=== PATIENT | male | born 1965 | race Caucasian/White ===

== ENCOUNTER → 2022-10-02 | Outpatient (CLI) | payer OTHER ==
--- NOTE | 2022-10-02 12:04 | XR ---
EXAMINATION TYPE: XR Hip Complete LT DATE OF EXAM: 10/02/2022 COMPARISON: EXAMINATION TYPE: XR Hip Complete LT DATE OF EXAM: 10/02/2022 COMPARISON: NONE HISTORY: Pain. TECHNIQUE: 2 views submitted FINDINGS: There is no evidence of erosive change or acute fracture. mild concentric narrowing of the hip joint. There may be slight hypertrophic change of the acetabulum . IMPRESSION: 1. Mild arthropathy correlate for femoral acetabular impingement.
[2022-10-02 18:09] LABS: Basophils # (A) 0.06 X 10*3/uL (0.00-0.10); Basophils % (A) 0.4 %; Eosinophils # (A) 0.06 X 10*3/uL (0.04-0.35); Eosinophils % (A) 0.4 %; HCT 47.8 % (39.6-50.0); HGB 16.4 g/dL (13.0-17.0); Immature Grans, Automated 0.5 %; Lymphocytes # (A) 1.69 X 10*3/uL (0.90-5.00); Lymphocytes % (A) 11.2 %; MCH 31.1 pg (27.0-32.0); MCHC 34.3 g/dL (32.0-37.0); MCV 90.5 fL (80.0-97.0); Mean Platelet Volume 9.5 fL (9.5-12.2); Monocytes # (A) 0.82 X 10*3/uL (0.20-1.00); Monocytes % (A) 5.4 %; NRBC Per 100 WBC 0 /100 WBCS (0.0-0.0); Neutrophils # (A) 12.38 X 10*3/uL (1.80-7.70); Neutrophils % (A) 82.1 %; Platelet Count 277 X 10*3/uL (140-440); RBC 5.28 X 10*6/uL (4.40-5.60); RDW 12.6 % (11.5-14.5); WBC 15.08 X 10*3/uL (4.50-10.00)
[2022-10-02 19:04] LABS: Hepatitis C IgG Antibody Reactive (Nonreactive)
[2022-10-02 19:07] LABS: ALT 22 U/L (10-49); AST 21 U/L (14-35); African American GFR (CKD) 77.6 (60.0-200.0); Albumin/Globulin Ratio 2.36 (1.60-3.17); Alkaline Phosphatase 85 U/L (41-126); BUN/Creat Ratio 21.09 Ratio (12.00-20.00); Blood Urea Nitrogen 25.1 mg/dL (9.0-27.0); Calcium 10.1 mg/dL (8.7-10.3); Carbon Dioxide 26.3 mmol/L (20.0-27.5); Chloride 99 mmol/L (96-109); Chol/HDL Ratio 4.64 Ratio; Globulin 2.1 g/dL (1.6-3.3); Glucose 103 mg/dL (70-110); LDL Cholesterol,Calculated 179.7 mg/dL (0.0-131.0); Non-African American GFR(CKD) 66.9 (60.0-200.0); Potassium 5.3 mmol/L (3.5-5.5); Sodium 137 mmol/L (135-145); Total Protein 7.1 g/dL (6.2-8.2)
[2022-10-02 19:41] LABS: Protein, Total 7.2 g/dL (6.2-8.2)
[2022-10-02 20:20] LABS: DNA Double-Stranded NEGATIVE (NEGATIVE); Scleroderma SC-70 Ab <0.2 AI
[2022-10-02 20:24] LABS: Cyclic Citrull Pep IgG Unit <0.5 U/mL; Cyclic Citrullinated Pep IgG NEGATIVE (NEGATIVE)
[2022-10-02 20:49] LABS: Erythrocyte Sedimentation Rate 12 mm/Hr (0-20)
[2022-10-03 20:31] LABS: Rheumatoid Factor, Qnt 12 IU/mL (0-15)
== END | disposition home or self-care (01) ==
LOC: RADXRMAIN 11:42
PROVIDERS: ATTEND Internal Medicine
DX: Z11.59 Encounter for screening for other viral diseases (principal); Z12.5 Encounter for screening for malignant neoplasm of prostate; M16.12 Unilateral primary osteoarthritis, left hip; I10 Essential (primary) hypertension; G57.93 Unspecified mononeuropathy of bilateral lower limbs
CPT/HCPCS: 86803; 80061; 80053; 85652; 84443; 82607; 82746; 85025; 86431; 84165; 86038; 86225; 86235 ×2; 86200; 73502; 36415; G0103

== ENCOUNTER → 2022-11-07 | Outpatient (CLI) | payer OTHER ==
--- NOTE | 2022-11-07 08:35 | MR ---
EXAMINATION TYPE: MR lumbar spine wo con DATE OF EXAM: 11/07/2022 7:46 AM COMPARISON: None. CLINICAL INDICATION:Male, 57 years old with history of G57.93 MONONEUROPATHY OF BILATERAL LOWER LIMBS ; TECHNIQUE: Multi planar, multi sequence imaging was performed utilizing: T1-weighted, T2-weighted, a nd turbo inversion recovery imaging of the lumbar spine. IV Contrast:. None. FINDINGS: Alignment: The lumbar vertebral bodies have preserved heights and alignment. Cord: The conus medullaris and the distal spinal cord appear unremarkable with regards to their signa l intensity and morphology. Bones/Discs: Scattered high T2 low T1 signal lesions throughout the spine including L3 and L1 most co mpatible with vertebral body hemangioma. Scattered Modic endplate changes most pronounced at L5-S1. D isc space narrowing at this level is also present. There is disc desiccation at L4-L5. T12-L1: No evidence of significant spinal canal stenosis or neural foraminal stenosis. L1-L2: No evidence of significant spinal canal stenosis or neural foraminal stenosis. L2-L3: No evidence of significant spinal canal stenosis or neural foraminal stenosis. L3-L4: No evidence of significant spinal canal stenosis or neural foraminal stenosis. L4-L5: Disc bulging with facet arthropathy without significant spinal canal stenosis and mild bilater al neural foraminal stenosis. L5-S1: Complete loss of disc height at this level with osteophytes without significant spinal canal s tenosis. There is facet joint arthropathy with mild bilateral neural foraminal stenosis. Other findings: Right peripelvic high T2 signal cyst. IMPRESSION: 1. No definitive evidence of disc herniation or significant spinal canal stenosis. 2. Multilevel disc degeneration with associated osteoarthritic changes percent L5-S1 with complete l oss of disc height and Modic endplate changes. Scattered mild neural foraminal stenosis.
== END | disposition home or self-care (01) ==
LOC: RADMRIMAIN 07:01
PROVIDERS: ATTEND Internal Medicine
DX: M51.37 Other intervertebral disc degeneration, lumbosacral region (principal); G57.93 Unspecified mononeuropathy of bilateral lower limbs; M99.73 Connective tissue and disc stenosis of intervertebral foramina of lumbar region
CPT/HCPCS: 72148

== ENCOUNTER → 2023-01-11 | Outpatient (CLI) | payer OTHER ==
[2023-01-11 11:57] VITALS: BP 138/90; PULSE 69; RESP 18; TEMP 98.3
--- NOTE | 2023-01-11 15:52 | P.PAINPG ---
PQRS Measure Charge Sheet Comment: HISTORY OF PRESENT ILLNESS: 57 yr old male as a referral from Dr Antunez presents today w severe and chronic LBP secondary to DDD, spondylosis and facet arthropathy without myelopathy for evaluation. Pt states pain level is provoked at 6 /10 in intensity, constant, localized in the lower lumbar spine, dull in character w shooting pain towards the BLEs into the feet. Pain is provoked by over activity. Pain is alleviated by chiropractic treatments as needed for the last 15 yrs, medications (Ibu), use of TENS machine at home as needed, topical, reclining, laying supine and rest. PMH: OA, HTN, Hyperlipidemia PSH: Colonoscopy (2016) SH: Never smoker, Occasional ETOH use, No illicit drug use FH: GM- Brain CA/ . Bro- Prostate CA/ . Fa- Lung CA/ Prostate CA. All: NKDA Meds: See list REVIEW OF ORGAN SYSTEMS: CONSTITUTIONAL: No fevers or chills. No recent weight loss. NEUROLOGICAL: + numbness and tingling along the distal extremities. No seizure disorders or headaches. MUSCULOSKELETAL: + pain PSYCHIATRIC: Denies current depression or suicidal thoughts. Physical Examinations : Constitutional : Cooperative , not in acute distress . Neurologic : Cranial nerve II to XII intact. No focal neurological deficits. Psychiatric : alert & oriented x 3. Matching mood & appropriate affect. Judgment & insight intact. Musculoskeletal : Cervical Spine Motor strength in the deltoid and biceps: Normal right side. Normal Left side Motor strength biceps and the wrist extensors: Normal right side . Normal left side Motor strength in the triceps muscle: Normal right side. Normal left side Deep tendon reflexes: Normal at the biceps. Normal at Brachioradialis. Normal at triceps Vertebral body tenderness to deep palpation over Cervical facet loading test: positive bilaterally Spurling test: positive bilaterally Neck distraction test: positive bilaterally Jessica sign: positive bilaterally Lumbar spine Motor strength lower extremities ,thigh and legs 5/5 Right side , 5/5 Left side Deep tendon reflexes : Normal Knee Jerk. Normal Ankle Jerk Vertebral body tenderness over L5 Lumbar facet Loading Test: positive Right / positive Left Range of motion of the lumbar spine Flexion 30 degrees, extension 10 degrees Straight Leg Raise test: Left/ Right positive at degree Maile test: positive right / positive left. Severe tenderness over the Sacroiliac joint on the Right / Left sides Gaenslen test: positive bilaterally Seated flexion test: positive bilaterally. Sacral spine : Severe tenderness over the Sacroiliac joint: right side / left side Range of motion: Flexion of the lumbar spine <60 degrees Range of motion: Extension of the lumbar spine <20 degrees Gaenslen's Test positive Sourav's Test positive Maile test: positive right side / left side Thigh Thrust Test Sacral Thrust Test Imaging: MRI without contrast of the lumbar spine from 11/07/22 reviewed Assessment/ Plan : Lumbar DDD Recommendation of ADORE L5-S1 #1. May need a series of injections for optimal pain relief. Risks, benefits of procedure discussed and patient verbalized understanding. Admits to aspirin or anti- coagulant use or medical history of diabetes. Protocol for discontinuation/ continuation of medications ama procedure discussed. All questions answered. I have spent greater than 30 minutes on patient care today. Dr Desai was available by phone for the evaluation of this patient. The time was used to review the medical records including relevant urine studies and Prescription history (MAPs), review of the available imaging, evaluation and examination of the patient, coordination of care with the medical staff and if applicable referring physicians, as well as creation of the medical record - Pain Location Bilateral Lower Back Non-Pharmacological Interventions: Heat, Inactivity, TENS Unit Pharmacological Interventions: PRN Medication, Topical Medication PQRS Narrative: Smoking Status Never smoker Home Medications: Ambulatory Orders Atorvastatin [Lipitor] 40 mg PO DAILY 01/11/23 Celecoxib [CeleBREX] 200 mg PO BID 01/11/23 DULoxetine HCL [Cymbalta] 60 mg PO DAILY 01/11/23 Ibuprofen [Motrin Ib] 200 mg PO DAILY PRN 01/11/23 amLODIPine [Norvasc] 5 mg PO DAILY 01/11/23 Controlled Substance Measures - Controlled Substance Measures Is patient prescribed a controlled substance at discharge?: No
== END ==
LOC: PNWHC3 10:38
PROVIDERS: ATTEND Specialist
DX: M47.817 Spondylosis without myelopathy or radiculopathy, lumbosacral region (principal); M51.36 Other intervertebral disc degeneration, lumbar region; I10 Essential (primary) hypertension; M19.90 Unspecified osteoarthritis, unspecified site; E78.5 Hyperlipidemia, unspecified
CPT/HCPCS: 99211

== ENCOUNTER → 2023-01-17 | Outpatient (CLI) | payer OTHER ==
--- NOTE | 2023-01-17 08:26 | CT ---
EXAMINATION TYPE: CT lumbar spine wo con DATE OF EXAM: 01/17/2023 6:42 AM COMPARISON: Outside lumbar spine x-ray December 20, 2022. MRI lumbar spine November 07, 2022 HISTORY: l5-s1 pain CT DLP: 990 mGycm Automated exposure control for dose reduction was used. Unenhanced CT of the lumbar spine was performed. Bone and soft tissue window settings are submitted as well as coronal and sagittal reconstructions. There are 5 lumbar-type vertebra. Alignment remains satisfactory. Advanced disc space narrowing L5-S1 level is redemonstrated. There is mild disc space narrowing at L4-L5 level. Vertebral body heights a re maintained. Axial images show T12-L1 and L1-L2 level to appear within normal limits. Axial images at L2-L3 level show mild facet arthropathy bilaterally mildly effacing the posterolatera l thecal sac. Axial images at L3-L4 level show mild broad disc bulge minimally effaces the anterior thecal sac dillon g with mild facet arthropathy bilaterally. Bilateral neural foramina remain patent. Axial images at L4-L5 level show mild/moderate facet arthropathy bilaterally. There is broad-based po sterior disc protrusion mildly based anterior thecal sac and axial image 57. There is mild left great er than right bilateral anterior inferior neural foraminal narrowing. Axial images at L5-S1 level show [id number] facet arthropathy bilaterally. Spinal canal is pres erved. Bilateral neural foramina are patent. Paraspinal muscle bulk is preserved. IMPRESSION: Multilevel degenerative changes in the mid to lower lumbar spine as detailed above. Simil ar findings noted on most recent MRI.
== END | disposition home or self-care (01) ==
LOC: RADCTMAIN 06:02
PROVIDERS: ATTEND Orthopaedic Surgery
DX: M47.817 Spondylosis without myelopathy or radiculopathy, lumbosacral region (principal); M51.26 Other intervertebral disc displacement, lumbar region; M99.73 Connective tissue and disc stenosis of intervertebral foramina of lumbar region
CPT/HCPCS: 72131

== ENCOUNTER → 2023-02-06 | Day surgery (SDC) | payer OTHER ==
[~2023-02-06] MED LIST: IOPAMIDOL M200 10 ML VIAL ONE; LACTATED RINGERS 1,000 ML IV SCH; methylPREDNISolone ACETATE 40 MG/ML 1 ML VIAL ONE
[2023-02-06 06:51] VITALS: TEMP 97.4
--- NOTE | 2023-02-06 07:29 | P.PCN ---
Date of Procedure: 02/06/23 Description of Procedure: PREOPERATIVE DIAGNOSIS: lumbar radiculopathy POSTOPERATIVE DIAGNOSIS: Lumbar radiculopathy PROCEDURE 1. Lumbar epidural steroid injection under fluoroscopic guidance at the L5-S1 level. 2. Lumbar epidurogram. Imaging: Fluoroscopy was used, images where saved to the medical record ANESTHESIA: Local only EBL: Minimal PROCEDURE INDICATION: The patient with low back pain and radiculitis symptoms unresponsive to conservative treatment. Fluoroscopy was used to optimize visualization of the needle placement and to maximize safety. PROCEDURE DESCRIPTION / TECHNIQUE: The patient was seen and identified in the preoperative area. Risks, benefits, complications including but not limited to infections, bleeding, allergic gold ction to medications, nerve damage and incomplete pain relief, as well as alternatives to the procedure were discussed with the patient. The patient agreed to proceed with the procedure and signed the consent. IV was started if indicated above, and vital signs were stable. Patient was taken to the OR and time out was completed. The patient was placed in the prone position on procedure table and a pillow was placed under the abdomen to reduce lumbar lordosis. The lumbosacral area was prepped and draped in the usual sterile fashion. Vitals were closely monitored during the procedure. Using anterior-posterior fluoroscopy, the L5-S1 interlaminar space was identified and the skin over this site was marked and then infiltrated with 1% lidocaine subcutaneously. Subsequently, a 20-gauge Tuohy epidural needle was inserted and advanced toward the epidural space using the Loss of resistance technique and guided by AP and lateral fluoroscopy. The correct needle position in the epidural space was verified with the injection of 1 mL of Omnipaque 150 contrast to observe an acceptable epidurogram, after negative aspiration for blood and CSF and in the absence of paresthesias. Again after negative aspiration, a 3 ml mixture containing 40mg of depomedrol and 2 ml of preservative free Normal Saline was injected and a washout of epidurogram was seen. Needle was withdrawn intact, skin was cleansed, and bandages were applied. COMPLICATIONS: None DISPOSITION / PLANS: The patient was placed in a supine position and transferred to the recovery area in a stable condition for observation. There was no evidence of lower extremity motor or sensory deficit after the procedure. Patient was discharged from the recovery room after meeting discharge criteria. Home discharge instructions were given to the patient by the staff. The patient was reexamined prior to discharge. The patient will follow up as directed.
[2023-02-06 07:49] VITALS: RESP 18
[2023-02-06 07:50] VITALS: BP 137/88; PULSE 61
--- NOTE | 2023-02-06 08:10 | FL ---
Intraoperative/procedural fluoroscopic services were provided. Total fluoroscopy time is 2 seconds wi th a total of 1 submitted images to PACS. Please see the operative/procedural note for further detail s. DAP: [phone]
== END ==
LOC: ORPAIN 06:24
PROVIDERS: ATTEND Hospitalist
DX: M54.16 Radiculopathy, lumbar region (principal)
CPT/HCPCS: 62323; J1030; Q9966

== ENCOUNTER → 2023-04-30 | Outpatient (CLI) | payer OTHER | END | disposition home or self-care (01) | LOC: LABWHC1 08:13 | PROVIDERS: ATTEND Internal Medicine | DX: Z53.9 Procedure and treatment not carried out, unspecified reason (principal) ==

== ENCOUNTER → 2023-04-30 | Outpatient (CLI) | payer OTHER ==
[2023-04-30 10:25] LABS: Prothrombin Time 10.3 sec (9.0-12.0)
[2023-04-30 16:20] LABS: BUN/Creat Ratio 14.55 Ratio (12.00-20.00); Chloride 105 mmol/L (96-109); Glucose 95 mg/dL (70-110); Potassium 4.5 mmol/L (3.5-5.5); Sodium 139 mmol/L (135-145)
[2023-04-30 18:13] LABS: Basophils # (A) 0.04 X 10*3/uL (0.00-0.10); Basophils % (A) 0.6 %; Eosinophils # (A) 0.04 X 10*3/uL (0.04-0.35); Eosinophils % (A) 0.6 %; HCT 45.1 % (39.6-50.0); HGB 15.3 d/dL (12.0-15.0); Lymphocytes # (A) 1.95 X 10*3/uL (0.90-5.00); MCH 31.7 pg (27.0-32.0); MCHC 33.9 d/dL (32.0-37.0); MCV 93.4 FL (80.0-97.0); Mean Platelet Volume 10.3 FL (9.5-12.2); Monocytes # (A) 0.51 X 10*3/uL (0.20-1.00); Monocytes % (A) 7.3 %; NRBC Per 100 WBC 0 X 10*3/uL (0.00-0.01); Neutrophils # (A) 4.41 X 10*3/uL (1.80-7.70); Neutrophils % (A) 63.4 %; Platelet Count 279 X 10*3/uL (140-440); RBC 4.83 X 10*6/uL (4.40-5.60); RDW 13.1 % (11.5-14.5); WBC 6.96 X 10*3/uL (4.50-10.00)
== END | disposition home or self-care (01) ==
LOC: LABPAT 08:11
PROVIDERS: ATTEND Orthopaedic Surgery
DX: Z01.812 Encounter for preprocedural laboratory examination (principal); Z22.322 Carrier or suspected carrier of Methicillin resistant Staphylococcus aureus; M47.816 Spondylosis without myelopathy or radiculopathy, lumbar region
CPT/HCPCS: 80048; 85025; 85610

== ENCOUNTER → 2023-05-03 | Outpatient (CLI) | payer OTHER | END | disposition home or self-care (01) | LOC: LABPAT 10:10 | PROVIDERS: ATTEND Orthopaedic Surgery | DX: Z01.812 Encounter for preprocedural laboratory examination (principal); Z22.322 Carrier or suspected carrier of Methicillin resistant Staphylococcus aureus; M47.816 Spondylosis without myelopathy or radiculopathy, lumbar region | CPT/HCPCS: 87070 ==

== ENCOUNTER → 2023-05-30 | Outpatient (CLI) | payer OTHER ==
[2023-05-30 16:39] LABS: Basophils # (A) 0.04 X 10*3/uL (0.00-0.10); Basophils % (A) 0.6 %; Eosinophils # (A) 0.04 X 10*3/uL (0.04-0.35); Eosinophils % (A) 0.6 %; HCT 39.7 % (39.6-50.0); HGB 13.3 d/dL (13.0-17.0); Lymphocytes # (A) 1.42 X 10*3/uL (0.90-5.00); Lymphocytes % (A) 22.8 %; MCH 30.9 pg (27.0-32.0); MCHC 33.5 d/dL (32.0-37.0); MCV 92.1 FL (80.0-97.0); Mean Platelet Volume 9.5 FL (9.5-12.2); Monocytes # (A) 0.48 X 10*3/uL (0.20-1.00); Monocytes % (A) 7.7 %; NRBC Per 100 WBC 0 X 10*3/uL (0.00-0.01); Neutrophils # (A) 4.25 X 10*3/uL (1.80-7.70); Neutrophils % (A) 68.1 %; Platelet Count 247 X 10*3/uL (140-440); RBC 4.31 X 10*6/uL (4.40-5.60); RDW 12.2 % (11.5-14.5); WBC 6.24 X 10*3/uL (4.50-10.00)
[2023-05-30 16:53] LABS: BUN/Creat Ratio 13.92 Ratio (12.00-20.00); Blood Urea Nitrogen 16.7 mg/dL (9.0-27.0); Calcium 9.3 mg/dL (8.7-10.3); Carbon Dioxide 23.8 mmol/L (21.6-31.8); Chloride 104 mmol/L (96-109); Glucose 106 mg/dL (70-110); Potassium 4.5 mmol/L (3.5-5.5); Sodium 139 mmol/L (135-145)
[2023-05-30 17:20] LABS: INR 1.09 sec (0.93-1.11); Prothrombin Time 12.3 sec (9.9-11.9)
== END | disposition home or self-care (01) ==
LOC: LABPAT 09:48
PROVIDERS: ATTEND Orthopaedic Surgery
DX: Z01.812 Encounter for preprocedural laboratory examination (principal); M47.816 Spondylosis without myelopathy or radiculopathy, lumbar region; M48.061 Spinal stenosis, lumbar region without neurogenic claudication
CPT/HCPCS: 80048; 85025; 85610

== ENCOUNTER 2023-06-05 11:24 | Day surgery (SDC) | payer OTHER ==
[~2023-06-05 11:24] MED LIST changes: +ACETAMINOPHEN TAB 500 MG TAB PO PRN; +DEXAMETHASONE SOD PHOSPHATE 4 MG/ML 1 ML VIAL IV ONE; +GABAPENTIN 300 MG CAP PO PRN; -IOPAMIDOL M200 10 ML VIAL ONE; -LACTATED RINGERS 1,000 ML IV SCH; +ONDANSETRON 4 MG/2 ML VIAL IVP PRN; +TRANEXAMIC 1,000 MG/100ML-NACL 1,000 MG in SALINE 1 100ML.BAG IVPB PRN; -methylPREDNISolone ACETATE 40 MG/ML 1 ML VIAL ONE
[2023-06-05] MEDS ORDERED: LACTATED RINGERS 1,000 ML IV ONE ×2 (11:50)
--- NOTE | 2023-06-05 14:03 | P.HPOR ---
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 Month and Year of last PT date? No Physician directed home exercise completed? Yes Medications Yes; List: Duloxetine Alternative interventions Chiropractic:Yes Massage therapy:No R.I.C.E:No Brace:No Injections No RFA: No SUBJECTIVE: Mr. Wynn returns to the office today for a preoperative evaluation preceeding his previously scheduled L4-S1 PLIF. The patient reports a continued dull, ache- like, throbbing pain throughout the low back, which has been ongoing for approximately 20 years without any known injury or trauma. The patient also notes continued pain radiating down into the bilateral lower extremities, associated with numbness and tingling. The patient notes that his numbness and tingling is worst throughout the bilateral foot. The patient notes that their current symptoms are exacerbated by all activity, which makes it very difficult for him to complete many of his daily activities. Overall, the patient has seen a progressive increase in his symptoms since their initial onset. The patient notes his symptoms have become intractable. The patient is having severe sleep disturbances due to their ongoing pain and associated symptoms. The patient has trailed conservative treatment measures in the form of at home stretches/exercises, at home heat/ice therapies, assurance services manager health care, and activity modification, all with no significant or sustained relief of his symptoms. The has been taking Duloxetine daily. Otherwise the patient denies any f/c/sob/cp, no incision concerns, no bladder or bowel retention/incontinence, no perineal numbness/tingling, and ambulates independently today. HPI: Mr. Wynn returns to the office on 02/21/2023 for an evaluation of their low back pain. Patient reports a dull, aching and throbbinglumbar pain ongoing for 20 years with no known injury or trauma to indicate an exact onset of their symptoms. In addition to their lumbar pain, they do report that it radiates into the bilateral lower extremities, associated with numbness and tingling through bilateral lower extremities especially their feet. Patient states they had L5-S1 ADORE on 02-06-23 which gave some relief. He states his left hip is popping and cracking. Overall the patient has seen a progressive increase in symptoms since their onset. Mr. Wynn symptoms are exacerbated with pronged walking, standing, stairs and sit to stand, due to this they notes that it is increasingly difficult for Mr. Wynn to complete many of their daily tasks. Patient is having moderate sleep disturbances as well due to their ongoing pain and associated symptoms. Regarding treatments, the patient has previously trialed above mentioned modalities. Patient denies trialing any other modalities at this time. For their symptoms, the patient has been taking motrin and duloxetine. He denies taking analgesics/anticoagulants/narcotics/ALPA- analogs. Otherwise the patient denies any f/c/sob/cp, no incision concerns, no bladder or bowel retention/incontinence, no perineal numbness/tingling, and ambulates independently. Mr. Wynn presents to the office on 12/20/2022 for an evaluation of their low back pain. Patient reports a dull, aching and throbbing lumbar pain ongoing for 20 years (with no known injury or trauma to indicate an exact onset of their symptoms. In addition to their lumbar pain, they do report that it radiates into the bilateral lower extremities, associated with numbness and tingling through bilateral lower extremities. Overall the patient has seen a progressive increase in symptoms since their onset. Mr. Wynn symptoms are exacerbated with pronged walking, standing, stairs and sit to stand, due to this they notes that it is increasingly difficult for Mr. Wynn to complete many of their daily tasks. Patient is having moderate sleep disturbances as well (due to their ongoing pain and associated symptoms). Regarding treatments, the patient has previously trialed above mentioned modalities. Patient denies trialing any other modalities at this time. For their symptoms, the patient has been taking motrin and cymbalta. He denies taking analgesics/anticoagulants/narcotics/ALPA- analogs). Otherwise the patient denies any f/c/sob/cp, no incision concerns, no bladder or bowel retention/incontinence, no perineal numbness/tingling, and ambulates independently. The patients' past social, medical, family, surgical history, as well as review of systems, have been reviewed. Please refer to the Neurosurgery History and Physical form that has been scanned in to our electronic medical record system. 14 points review of systems completed and as stated in HPI, all other systems reviewed are negative. Social History: Reviewed, see appropriate section of the chart for details. [id number]: never a smoker P3 Alcohol: occasional alcohol [id number] History: Reviewed, see appropriate section of the chart for details. P2 Past Medical History: Reviewed, see appropriate section of the chart for details. [id number] Medications: Rx: amLODIPine 5 mg tablet Ref: 0 Rx: atorvastatin 40 mg tablet Ref: 0 Rx: CeleBREX 200 mg capsule Ref: 0 Rx: DULoxetine 60 mg capsule,delayed release Ref: 0 Rx: Motrin Ref: 0 P1 PHYSICALEXAMINATION: General: Awake, alert, appropriate for age, in no acute distress. HEENT: No unusual neck masses around region of lateral neck triangle, thyroid, supraclavicular groove Extremities: Skin warm and dry without acute lesions, coloration, temperature, skin intact, no tenderness or erythema Integument: Hairy patches: ABSENT Dorsal skin dimples: ABSENT Cafe au lait spots: ABSENT Incision: Absent Palpation: Please see Pain drawing on Intake sheet for further detail. Midline spinal tenderness: No E6 Cervical Tenderness: No E6 Paralumbar tenderness: Yes E6 Parathoracic tenderness: No E6 Buttocks tenderness: No E6 POSTURAL and MUSCULO-SKELETAL EVALUATION: Coronal Balance: NEUTRAL Recumbent testing: Patient is able to lay flat on back Sagittal Balance: NEUTRAL Shoulder Profile: LEVEL Pelvic Girdle: LEVEL Neck ROM: UNRESTRICTED Lumbar ROM: RESTRICTED Shoulder ROM: Symmetrical Hip ROM: Symmetrical Knee ROM: Symmetrical Hands: Normal appearance, symmetrical Feet: Normal appearance, Symmetrical VASCULAR STATUS : LEFT RIGHT Wrist Pulses INTACT INTACT Pedal Pulses (Dors. pedis & post.tibialis) INTACT INTACT Color NORMAL NORMAL Edema Absent Absent NEUROLOGIC EXAMINATION: Mental Status:Awake and alert, fully oriented, with normal attention, concentration and memory, and fluent, appropriate speech. Cranial Nerves: I: Olfactory not tested. II: Visual acuity normal, no visual field deficit noted with confrontation. III,IV: Normal pupillary reflexes & intact extraocular movements without nystagmus. V,: Intact symmetrical facial sensation. VII: Intact symmetrical facial motor movement VIII: Hearing intact. IX,X: Intact gag, swallow, & normal voice. XI: Sternocleidomastoid, trapezius function intact. XII: Tongue midline with normal movements. L'hermitte's Sign: Negative / absent Spurling'Sign: Absent bilaterally. Cubital percussion test: Absent bilaterally. Bowers-Tinel sign - Carpal region: Absent bilaterally. Straight Leg Raising: Absent bilaterally. Crossed straight leg raise: negative O8 MOTOR EXAM (0-5/5, N/T) Muscle appearance: Symmetrical, without signs of atrophy or dystrophy UPPER EXTREMITY RIGHT LEFT Shoulder Abduction 5/5 5/5 Biceps 5/5 5/5 Triceps 5/5 5/5 Wrist Extension 5/5 5/5 Hand Intrinsic 5/5 5/5 Interactive Media Marketing Director 5/5 5/5 LOWER EXTREMITY RIGHT LEFT Hip Flexion 4/5 4/5 Knee Extension 4/5 4/5 Knee Flexion 4/5 4/5 Dorsiflexion 4/5 4/5 Plantarflexion 4/5 4/5 EHL 4/5 4/5 FHL 4/5 4/5 Toe heel walk / heel-toe walk intact while maintaining satisfactory balance? NO Squatting/straightening w/o assistance to a min of 60 degree knee flexion? NO Single leg stance:Needed assistance REFLEXES(0-4/2, NT)Upper ExtremityLower Extremity Right 2 2 Left 2 2 Pathological Reflexes RIGHT LEFT Bowers's Absent Absent Clonus Absent Absent Babinski Absent Absent Sensory system (0-4, N/T) Test type RU REJI RL LL Joint-Position 2 2 2 2 Vibration 2 2 2 2 Pain & LT sense 2 2 2 2 Dermatomal Deficit: None None L3-S1 L3-5 Gait and Functional Evaluation: Ambulatory aids:Independent Romberg's test:Intact bilaterally Steady Gait RADIOGRAPHIC STUDIES: XRayLumbar Multiview (AP, Lateral, Flexion, Extension) with AP pelvis; 5 views taken at [facility] on 12/20/22 of Lumbar Spine: IMages reviewed with the patient and demonstrate severe L4-S1 spondylosis with disc height collapse, osteophytic changes, subchondral sclerosis, facet arthropathy as well with likey foraminal stenosis at these levels. No acute fr acture noted. Flattened LL noted. No lesions noted. Better assessed with CT scan of the bony anatomy. AP pelvis shows congruent level pelvis no fracture Bilateral lower EMG 10/09/2022L4-5 and L5-S1. See read. Lumbar CT taken on 01/17/23 at [facility]: IMages reviewed with pt Severe spondylosis L4-5 and L5-S1 with near complete collapse of L5-S1 Facet arthropathy, severe with hypertrophy these levels contributing to stenosis central and foraminal b/l. Broad based disc bulge/herniation noed with annular tearing of L4-5 causing b/l foraminal stenosis. LL is well maintained with in PI limits. No acute fracture or lesions noted. IMPRESSION: It was my pleasure to have seen and examined Jeffry. I reviewed the patient's clinical syndrome, physical findings, and imaging studies during the appointment today. It is my impression that the patient has a diagnosis of. 1. L4-S1 Severe spondylosis 2.L4-5 Stenosis 3. Lower extremity paresthesia 4. Lower extremity radiculopathy I outlined the natural course history without intervention and various interventional options. PLAN All options were reviewed today, we decided the best course of action would be: -Advised patient to continue with supplements, health maintenance, and home exercise programs. Patient expressed understanding and will continue with these modalities. -I discussed treatment options with the patient, including operative and non- operative options, and they have elected to proceed with the following surgical procedure: L4-S1 posterior lumbar interbody fusion The indications, risks, benefits, and alternatives to surgery were discussed with the patient and family at length. Specifically (but not limited to) the risks of infection, stiffness, recurrence of symptoms, need for revision surg michael, local numbness, neurovascular injury, and blood clots were discussed. The patient's questions were answered. The decision to proceed was made. Consent will be obtained for the procedure. -Ambulate daily -Take pain medications and post op medications as needed and as directed -Ice and rest for pain and swelling control. Spine Surgery Risk Review Mr. Wynn is presenting for evaluation of low back pain. It was my pleasure to have seen and examined Mr. Wynn. In our visit today we have had a chance to go over subjective complaints, physical examination findings and treatments including the natural course history without intervention and various interventional options. The patients imaging demonstrates: XRayLumbar Multiview (AP, Lateral, Flexion, Extension) with AP pelvis; 5 views taken at [facility] on 12/20/22 of Lumbar Spine: IMages reviewed with the patient and demonstrate severe L4-S1 spondylosis with disc height collapse, osteophytic changes, subchondral sclerosis, facet arthropathy as well with likey foraminal stenosis at these levels. No acute fracture noted. Flattened LL noted. No lesions noted. Better assessed with CT scan of the bony anatomy. AP pelvis shows congruent level pelvis no fracture Bilateral lower EMG 10/09/2022L4-5 and L5-S1. See read. Lumbar CT taken on 01/17/23 at [facility]: Images reviewed with patient Severe spondylosis L4-5 and L5-S1 with near complete collapse of L5-S1 Facet arthropathy, severe with hypertrophy these levels contributing to stenosis central and foraminal b/l. Broad based disc bulge/herniation noed with annular tearing of L4-5 causing b/l foraminal stenosis. LL is well maintained with in PI limits. No acute fracture or lesions noted. On physical exam, Mr. Wynn demonstrates: B/l LE weakness with paresthesias in the L4-S1 dermatomal distribution. Some muscle atrophy noted in calves b/l. Unsteady with balance testing. Patient reports a dull, aching and throbbing lumbar pain ongoing for 20 years with no known injury or trauma to indicate an exact onset of their symptoms. In addition to their lumbar pain, they do report that it radiates into the bilateral lower extremities, associated with numbness and tingling through bilateral lower extremities especially their feet. Patient states they had L5S1 ADORE on 02-06-23 which gave some relief. He states his left hip is popping and cracking. Overall the patient has seen a progressive increase in symptoms since their onset. Mr. Wynn symptoms are exacerbated with pronged walking, standing, stairs and sit to stand, due to this they notes that it is increasingly difficult for Mr. Wynn to complete many of their daily tasks. I have explained to the patient that as their condition progresses it will cause further neurological deficits and eventual paralysis. Based on the patients imaging, physical exam, and the rapid progression and disabling nature of their symptoms, at this time I recommend surgery in the form of a: L4-S1 posterior lumbar interbody fusion. I discussed the risk and benefits of this procedure at length with Mr. Wynn. The patient agreed to considered pursuing the procedure above mentioned. Prior to surgery, she should follow up with her PCP (Cardio, ID, IM etc) for clearance. Questions were invited and answered, and the patient wishes to proceed as outlined below. Currently, I am recommendin. L4-S1 posterior lumbar interbody fusion 2.Follow up with PCP for surgical clearance 3.Review of surgical risks and benefits as well as an educational packet on the proposed surgical procedure. Risks: All surgical procedures come with inherent risks, including those related to positioning, anesthesia, intraoperative findings, and postoperative complications. It is important to understand that surgery does not come with any guarantee of a successful outcome as complications and adverse events are always possible. The patient was given a handout in office today discussing the surgical procedure and risks associated with the intervention, both of which were discussed with the patient. These risks include but are not limited to the following: * Experiencing same, different or even worse symptoms in back, neck, arms, or legs compared to before surgery. Requiring further surgery or other forms of treatment presently or at some time in the future at same or other levels of the intended spine surgery. On an extreme but fortunately relatively rare basis severe complication such as blindness, stroke, heart attack, temporary and/or permanent nerve injury, paralysis, coma, or may occur, sometimes without known explanation. Surgical complications may include but are not limited to risk of infection, fluid accumulation in the surgical dissection site, including a seroma or hematoma, that requires additional surgery, wound drainage, bleeding, new numbness or weakness, vision changes/loss, spinal fluid leakage, non-healing and/or infected incision, headaches, difficulty or inability to swallow, hoarseness, hemopneumothorax, pneumothorax, impotence, retrograde ejaculation, vaginal dryness; injury to nerves, spinal cord, blood vessels, lymphatics or other vital organs (i.e., bowel injury, injury to the great vessels); heterotopic bone formation; complications related to the hardware such as screws, rods, cages including misplaced hardware, device failure, instrumentation at the wrong spine level, hardware fracture/breakage, or hardware loosening; vertebral failure of the spinal column above or below the newly placed hardware; retained surgical instrumentations or devices and the need for further surgery. * Medical risks of the planned spine surgery include but are not limited to generalized Infections to the whole body or local areas outside of the surgical site (sepsis), heart attack, bleeding, anaphylaxis, meningitis, seizure, epilepsy, hearing loss, burn saucedo, laceration of the head or other areas of the body, bruising, hypersensitivity of the skin, bladder over distension; allergic reaction; shoulder injury related to positioning; fat, blood and air clots to other areas of the body like heart, lungs, brain; failure of internal organs such as lungs, kidneys, liver and excessive bleeding. If blood transfusions are necessary, note that transfusions may cause intolerance reactions such as anaphylaxis or other complex reactions. Despite best efforts, the results of spine surgery might not heal in terms of bone, soft tissues such as skin, fascia, ligaments, and joints. Additionally, in order to achieve best possible results, spine surgery may be carried out beyond the initially planned levels and involve decompression, fusion including insertion of hardware at levels other than the original intended area of surgical interest change some portions of the procedure in order to ensure the best possible outcomes. With spine surgery and spinal fusion, there are different off label uses of instrumentation (devices, implants and hardware) as well as biological substances (bone morphogenic proteins, demineralized bone matrix) as well as using extra bone from allograft sources (i.e. cadaver bone) or autograft (iliac crest bone, ribs, or the spine itself). The patient has been given information about these practices and their inherent risks and benefits. [facility] is an educational center that serves as a training facility for neurosurgical and orthopedic MECHANICAL SERVICE SPECIALIST and Nursing students. Physician assistants are medically trained surgical providers who function in the outpatient, inpatient, and operating room setting under the direct supervision of the attending surgeon. [facility] has multiple operating rooms with single and overlapping rooms running daily. They currently function under the required guidelines as produced by the [facility] with regards to the overlapping rooms and will continue to comply with changes to this policy as they occur. The requirements include and are complied with as follows: (1) the critical portions of the overlapping rooms will not occur at the same time, (2) the attending physician will be physically present during the critical portions of the procedure and immediately available during the entire case, and (3) a back-up attending is designated should the primary attending not be immediately available. The patient has had a chance to review all the listed information, has been given print outs detailing this information, and has had all his/her questions answered to their satisfaction. It was my pleasure to have seen and examined Mr. Wynn. In our visit today we have had a chance to go over my understanding of our patient's current condition, the natural course history without intervention and various interventional options. Questions were invited and answered, and the patient wishes to proceed as outlined above. I have seen and examined the patient for 25 minutes and we have spent more than 50% of the time in repeat and detailed counseling about the patient's condition, its natural course history with out and as much as can be predicted with surgery and re-review of various surgical treatment options. In conclusion, Mr. Wynn requested we proceed with the above suggested surgery and are willing to accept risks and limitations of the suggested surgery as nature of the disease process and our best attempts at treatment for the condition. Thank you again for allowing us to be part of your patient's care. Please don't hesitate to contact me if you have any further questions. Follow-up: Post procedure Patient Education: (Informational booklet, instructions, etc) given at today's appointment: Yes .ED:Patient Education: Y Medications Reviewed: YES In our visit today Mr. Wynn and I have had a chance to go over my understanding of the patient's current condition, the natural course history without intervention and various interventional options. Questions were invited and answered, and the patient wishes to proceed as outlined above. I will be sure to keep you updated afterMr. Wynn returns here for further follow-up. Thank you again for your referral. Please do not hesitate to contact me if you have any further questions. Signed and authenticated by: Beck [facility] Minimally [facility]vasive Spine Surgery [address] [facility], [address] [address] This message is confidential, intended only for the named recipient(s) and may contain information that is privileged or exempt from disclosure under applicable law. If you are not the intended recipient(s), you are notified that the dissemination, distribution or copying of this information is strictly prohibited. If you received this message in error, please notify the sender then delete this message. Patient verbalizes understanding of the information discussed. The above note was initiated by Jennifer Dukes, physician recording library assistant for Dr. Beck Antunez. This note has been reviewed by Dr. Antunez, who has made his personal changes and impressions for this document. CC: Miguel Angel Lira, DO # SIGNED BY Beck Antunez (GOO)05/16/2023 08:55AM Past Medical History Past Medical History: Hyperlipidemia, Hypertension, Musculoskeletal Disorder, Osteoarthritis (OA), Skin Disorder Additional Past Medical History / Comment(s): neuropathy mayra feet, drop foot both feet, past hx. of elevated WBC-saw [place], no issues found, eczema, this surgery was rescheduled from last month History of Any Multi-Drug Resistant Organisms: None Reported Past Surgical History: No Surgical Hx Reported Additional Past Surgical History / Comment(s): colonoscopy Past Anesthesia/Blood Transfusion Reactions: No Reported Reaction Additional Past Anesthesia/Blood Transfusion Reaction / Comment(s): has never had anesthesia Smoking Status: Never smoker - Past Family History Father Family Medical History: Cancer, Deep Vein Thrombosis (DVT) Additional Family Medical History / Comment(s): LUNG Brother(s) Family Medical History: Cancer Additional Family Medical History / Comment(s): prostate, pancreatic Mother Family Medical History: Deep Vein Thrombosis (DVT) Medications and Allergies Home Medications Medication Instructions Recorded Confirmed Type Atorvastatin [Lipitor] 40 mg PO DAILY 01/11/23 05/30/23 History DULoxetine HCL [Cymbalta] 60 mg PO DAILY 01/11/23 05/30/23 History amLODIPine [Norvasc] 5 mg PO DAILY 01/11/23 05/30/23 History Allergies Allergy/AdvReac Type Severity Reaction Status Date / Time No Known Allergies Allergy Verified 04/30/23 15:24 Physical Examination Osteopathic Statement: *. No significant issues noted on an osteopathic structural exam other than those noted in the History and Physical/Consult.
[2023-06-05] MEDS ORDERED: MIDAZOLAM 2 MG/2 ML VIAL ONE (14:56)
[2023-06-05] MEDS ORDERED: fentaNYL (PF) 50 MCG/ML 2 ML AMP ONE (14:56)
[2023-06-05] MEDS ORDERED: PROPOFOL 10 MG/ML 20 ML VIAL IV ONE (14:56)
[2023-06-05] MEDS ORDERED: LIDOCAINE 2% INJ 20 MG/ML (2 ML VIAL) ONE (14:56)
[2023-06-05] MEDS ORDERED: HYDROmorphone (PF) 1 MG/ML ONE (14:56)
[2023-06-05] MEDS ORDERED: GLYCOPYRROLATE 0.2 MG/ML 2 ML VIAL ONE (14:56)
[2023-06-05] MEDS ORDERED: PHENYLEPHRINE-0.9% NACL SYG 1,000 MCG/10 ML SYRINGE ONE (14:56)
[2023-06-05] MEDS ORDERED: TRANEXAMIC 1,000 MG/100ML-NACL PREMIX BAG ONE (14:56)
[2023-06-05] MEDS ORDERED: ePHEDrine 50 MG/ML 1 ML VIAL ONE (14:56)
[2023-06-05] MEDS ORDERED: ROCURONIUM 10 MG/ML (5 ML VIAL) IV ONE (14:56)
[2023-06-05] MEDS ORDERED: SUCCINYLCHOLINE CHLORIDE 200 MG/10 ML VIAL IV ONE (14:56)
[2023-06-05] MEDS ORDERED: GELATIN SPONGE,ABSORB (LARGE) 1 EACH SPONGE MISCELLANE ONE ×2 (14:59→16:06)
[2023-06-05] MEDS ORDERED: THROMBIN (BOVINE) 5,000 UNIT VIAL MISCELLANE ONE ×2 (15:00→16:07)
[2023-06-05] MEDS ORDERED: MAGNESIUM HYDROXIDE 2,400 MG/30 ML CUP PO PRN (17:40)
[2023-06-05] MEDS ORDERED: HYDROmorphone 1 MG/ML 1 ML SYRINGE IVP PRN (17:40)
[2023-06-05] MEDS ORDERED: HYDROcodone/APAP 10-325MG 1 EACH TAB PO PRN (17:40)
[2023-06-05] MEDS ORDERED: SENNOSIDES-DOCUSATE SODIUM 1 EACH TAB PO PRN (17:40)
[2023-06-05] MEDS ORDERED: HYDROmorphone 0.5 MG/0.5 ML SYRINGE IVP PRN (17:40)
[2023-06-05] MEDS ORDERED: CYCLOBENZAPRINE 5 MG TAB PO PRN (17:40)
--- NOTE | 2023-06-05 17:41 | P.OP ---
Date of Procedure: 06/05/23 Preoperative Diagnosis: 1. L4-5 SPONDYLOSIS WITH STENOSIS FORAMINAL 2. L5-S1 SPONDYLOSIS WITH FACET ARTHROSIS 3. LOW BACK PAIN 4. LE RADICULOPATHY Postoperative Diagnosis: 1. L4-5 SPONDYLOSIS WITH STENOSIS FORAMINAL 2. L5-S1 SPONDYLOSIS WITH FACET ARTHROSIS 3. LOW BACK PAIN 4. LE RADICULOPATHY Procedure(s) Performed: 1. L4-5 POSTERIOLATERAL AND INTERBODY FUSION (04565) 2. L5-S1 POSTERIOLATERAL STABILIZED FUSION (65929)/59 3. L4-S1 INSTRUMENTATION (28791) 4. L4-5 LAMINOFORAMINOTOMY AND DECOMPRESSION OF NEURAL ELEMENTS AND CAGE PLACEMENT (24382) 5. INSERTION OF BIOMECHANICAL DEVICE (75240) 6. USE OF Selatra NAVIGATION (44703) USE OF IONM ALL SCREWS TESTED 17 MA OR ABOVE USE OF IO MICROSCOPE Implants: -GLOBUS CREO SCREW AND NBA SYSTEM -LIFE SPINE EXPANDABLE CAGE -MAGNATOS, ARTHROCELL, ALLOCELL, AUTOGRAFT Anesthesia: GETA Surgeon: Beck [employer] Coordinator #1: Catalino Boykin (WAS PRESENT AND ASSISTED WITH ALL ASPECRTS OF THE CAWSE FROM POSITION TO CLOSURE. ) Estimated Blood Loss (ml): 100 IV fluids (ml): 1,500 Urine output (ml): 200 Pathology: none sent Condition: stable Disposition: PACU Indications for Procedure: Mr. Wynn is presenting for evaluation of low back pain. It was my pleasure to have seen and examined Mr. Wynn. In our visit today we have had a chance to go over subjective complaints, physical examination findings and treatments including the natural course history without intervention and various interventional options. The patients imaging demonstrates: XRayLumbar Multiview (AP, Lateral, Flexion, Extension) with AP pelvis; 5 views taken at [facility] on 12/20/22 of Lumbar Spine: IMages reviewed with the patient and demonstrate severe L4-S1 spondylosis with disc height collapse, osteophytic changes, subchondral sclerosis, facet arthropathy as well with likey foraminal stenosis at these levels. No acute fracture noted. Flattened LL noted. No lesions noted. Better assessed with CT scan of the bony anatomy. AP pelvis shows congruent level pelvis no fracture Bilateral lower EMG 10/09/2022L4-5 and L5-S1. See read. Lumbar CT taken on 01/17/23 at [facility]: Images reviewed with patient Severe spondylosis L4-5 and L5-S1 with near complete collapse of L5-S1 Facet arthropathy, severe with hypertrophy these levels contributing to stenosis central and foraminal b/l. Broad based disc bulge/herniation noed with annular tearing of L4-5 causing b/l foraminal stenosis. LL is well maintained with in PI limits. No acute fracture or lesions noted. On physical exam, Mr. Wynn demonstrates: B/l LE weakness with paresthesias in the L4-S1 dermatomal distribution. Some muscle atrophy noted in calves b/l. Unsteady with balance testing. Patient reports a dull, aching and throbbing lumbar pain ongoing for 20 years with no known injury or trauma to indicate an exact onset of their symptoms. In addition to their lumbar pain, they do report that it radiates into the bilateral lower extremities, associated with numbness and tingling through bilateral lower extremities especially their feet. Patient states they had L5S1 ADORE on 02-06-23 which gave some relief. He states his left hip is popping and cracking. Overall the patient has seen a progressive increase in symptoms since their onset. Mr. Wynn symptoms are exacerbated with pronged walking, standing, stairs and sit to stand, due to this they notes that it is increasingly difficult for Mr. Wynn to complete many of their daily tasks. I have explained to the patient that as their condition progresses it will cause further neurological deficits and eventual paralysis. Based on the patients imaging, physical exam, and the rapid progression and disabling nature of their symptoms, at this time I recommend surgery in the form of a: L4-S1 posterior lumbar interbody fusion. I discussed the risk and benefits of this procedure at length with Mr. Wynn. The patient agreed to considered pursuing the procedure above mentioned. Prior to surgery, she should follow up with her PCP (Cardio, ID, IM etc) for clearance. Questions were invited and answered, and the patient wishes to proceed as outlined below. Currently, I am recommendin. L4-S1 posterior lumbar interbody fusion Description of Procedure: L4-L5 MIS TLIF ALYSSA The patient was seen and examined in the preoperative area. All preoperative protocols were followed. Informed consent was obtained risks and benefits of the procedure were discussed at length. Risks including bleeding infection damage to the surrounding tissue and risk of reoperation were discussed with the patient. Risk of anesthesia up to and including was a discussed with the patient. These are outlined in the risk review. They were willing to accept these risks and all the risks of surgery. The patient was given a weight-based dose of antibiotics in the form of 2 g Ancef. The patient was seen and evaluated by the anesthesia team who deemed them fit for surgery. The site was marked, the patient was willing to proceed with the procedure. The patient was transferred to the operative suite by the Department of anesthesia. They were then drifted off to sleep by the department anesthesia and GETA was performed. The patient tolerated this well. Harmon catheter was placed by nursing staff, a-traumatically. Once confirmation of lines and vent ilation the patient was transferred to a prone Carlos table very carefully. All bony prominences including wrists, elbows, axilla, chest, hips, and thighs, and feet were padded very well. Special attention was paid to the genitalia, and these were padded accordingly. SCDs were placed on bilateral lower extremities and were connected. Arms were well padded and placed on arm boards up and out in the 90/90 position. Once in position, again we confirmed good ventilation capabilities and that lines were running appropriately. The patients Lumbar spine was then exposed. 1010s were placed outlining the incision site. Standard alcohol was used to clean the incision site and allowed to dry. C-arm was used to needle localize the pedicles at L4-5 and bio-danielle the patient and confirm level for incision which was marked with a skin marker. Operative briefing was performed with all teams and everyone in agreement to proceed. The patient was then prepped and draped in a normal sterile fashion. Timeout was then performed, and all parties agreed with the procedure to be performed. Skin nicks made and pins placed in the PSIS on the right for the Dane tracker. 3D Zheim spin was then registered and confirmed to be accurate. Navigated jamshidi and drill-guide were then used to target pedicles bilaterally at L4 THROUGH S1. Navigated drill guide and jamshidi were used to target pedic les and wires placed. Once accessed wires were placed in their void. Skin incision was then made along these wires and perfect scalpel was used over the wire to create a path and measure screw length. Screws were then placed over wires on the contralateral side. Once screw was at the back of the body wire was removed. The screws were confirmed to be in good position on AP and lateral L5-S1 contralateral to tube. We then tested screws and they all tested above 20 mA. Attention was then turned to interbody fusion at L4-5. Tubular retractor system was placed at the interspace of L4-5 using biplanar c arm. Once in position and dilated up to 26mm tube it was locked to the bed and confirmed in good position. Microscope was then brought in for visualization. Limited myomectomy was p erformed and laminectomy, complete facetectomy and foraminotomy performed at L4- 5 using high speed ekta and Kerrison rongure. The ligamentum was removed and dural sac decompressed. Exiting and traversing roots visualized and decompressed. Neural elements were then protected, and disc space accessed with an osteotome. Sequential shaving then done under lateral imaging and complete discectomy performed using darwin, pituitary and curettes. Once good bleeding endplates accomplished and good height congregation with trials, a combination of autograft, allograft and synthetic placed anterior in the disc space. The cage was then selected and impacted into place under lateral imaging. The cage was then expanded restoring height, lordosis and alignment. The cage was backfilled with bone graft through a funnel. The balance truer removed and area inspected. Good cage placement, stable cage and no injuries. Area was irrigated copiously, and meticulous hemostasis achieved. The tubular retractor was then removed under direct visualization. Screws were then selected and placed over the previously placed wires on the ipsilateral side. This was done in the fashion described above. Screws were then tested, and all tested above 20 mA. Shells were then placed on the tabs. Nba length was then measured, and rods selected. They were then placed through the MIS tabs, subfascial and locked into all screw heads appropriately. These were then locked into place with set screws and final tightened. Nba holders removed and images taken showing good placement of rods good lordosis and congregation of height. Tabs were broken off. Wounds were then copiously irrigated with NSS. Ekta used for TP decortication and mixture of MagnatOs, allograft and autograft packed posterolateral. Facia was then closed with 0 Vircyl on a Scorpion suture passer for MIS closure. Deep subq closed with 0 Vicryl. Superficial subq closed with 2-0 Vicryl and skin with tracie. Wound edges approximated very well. Wound was then cleaned with alcohol and dried. Wounds dressed in Optifoam dressings. The patient was then transferred off the table back to their hospital bed a- traumatically. They were extubated by the department of anesthesia. They were then transferred to PACU in stable condition having tolerated the procedure with no complications.
--- NOTE | 2023-06-05 17:45 | FL ---
Intraoperative/procedural fluoroscopic services were provided. Total fluoroscopy time is 1 minute 3 s econds with a total of 10 submitted images to PACS. Please see the operative/procedural note for furt her details. DAP: 4482.76 cGycm2
[2023-06-05] MEDS: HYDROmorphone 0.5 MG/0.5 ML SYRINGE IVP PRN ×2 (17:51→18:04)
[2023-06-05] MEDS: LACTATED RINGERS 1,000 ML IV SCH (18:40)
[2023-06-05] MEDS: ACETAMINOPHEN TAB 325 MG TAB PO SCH (18:40)
[2023-06-05] MEDS: HYDROcodone/APAP 5-325MG 1 EACH TAB PO PRN (19:55)
[2023-06-05] MEDS: GABAPENTIN 300 MG CAP PO SCH (21:44)
[2023-06-06] MEDS: HYDROcodone/APAP 5-325MG 1 EACH TAB PO PRN ×2 (01:03→06:37)
[2023-06-06] MEDS: LACTATED RINGERS 1,000 ML IV SCH (01:44)
[2023-06-06] MEDS: ACETAMINOPHEN TAB 325 MG TAB PO SCH ×3 (01:45→12:43)
--- NOTE | 2023-06-06 05:32 | P.CONS ---
History of Present Illness - Reason for Consult Consult date: 06/05/23 perioperative management - Chief Complaint medical eval - History of Present Illness 58 year old male with hypertension patient is seen post lumbar surgery , he tolerated procedure well, he already walked and urinated with assistance. denies any chest pain or SOB. tolerated PO intake he denies any medical concerns at this time denies any new focal neurodeficits at this time review of systems Pertinent positives as noted in HPI. All other systems were reviewed and are negative on exam Constitutional: No acute distress, conversant, pleasant Eyes: Anicteric sclerae, moist conjunctiva, Pupils equal round reactive to light ENMT: NC/AT Oropharynx clear, no erythema, or exudates Neck: Supple, no masses, or JVD No carotid bruits No thyromegaly Lungs: Clear to auscultation Clear to percussion Normal respiratory effort, no accessory muscle use Cardiovascular: Heart regular in rate and rhythm, No murmurs, gallops, or rubs No peripheral edema Abdominal: Soft Nontender, no guarding, rebound or rigidity Abdomen moving with respiration Normoactive bowel sounds No hepatomegaly, No splenomegaly No palpable mass No abdominal wall hernia noted Extremities: No digital cyanosis No clubbing Pedal pulses intact and symmetrical Radial pulses intact and symmetrical No calf tenderness Psychiatric: Alert and oriented to person, place and time Appropriate affect fair judgement Neuro Muscles Strength 5/5 in all 4 extremities Sensation to light touch grossly present throughout Cranial nerves II-XII grossly intact Lymphatics: no palpable cervical or supraclavicular lymph nodes Past Medical History Past Medical History: Hyperlipidemia, Hypertension, Musculoskeletal Disorder, Osteoarthritis (OA), Skin Disorder Additional Past Medical History / Comment(s): neuropathy mayra feet, drop foot both feet, past hx. of elevated WBC-saw [facility], no issues found, eczema, this surgery was rescheduled from last month History of Any Multi-Drug Resistant Organisms: None Reported Past Surgical History: No Surgical Hx Reported Additional Past Surgical History / Comment(s): colonoscopy Past Anesthesia/Blood Transfusion Reactions: No Reported Reaction Additional Past Anesthesia/Blood Transfusion Reaction / Comm: has never had anesthesia Past Psychological History: Anxiety, Depression Smoking Status: Never smoker Past Alcohol Use History: Rare Past Drug Use History: None Reported - Past Family History Father Family Medical History: Cancer, Deep Vein Thrombosis (DVT) Additional Family Medical History / Comment(s): LUNG Brother(s) Family Medical History: Cancer Additional Family Medical History / Comment(s): prostate, pancreatic Mother Family Medical History: Deep Vein Thrombosis (DVT) Medications and Allergies Home Medications Medication Instructions Recorded Confirmed Type Atorvastatin [Lipitor] 40 mg PO DAILY 01/11/23 06/05/23 History DULoxetine HCL [Cymbalta] 60 mg PO DAILY 01/11/23 06/05/23 History amLODIPine [Norvasc] 5 mg PO DAILY 01/11/23 06/05/23 History Allergies Allergy/AdvReac Type Severity Reaction Status Date / Time No Known Allergies Allergy Verified 06/05/23 11:50 Physical Exam Vitals: Vital Signs Temp Pulse Resp BP Pulse Ox 06/06/23 00:30 98.1 F 81 18 130/89 95 06/05/23 20:45 97.4 F L 97 18 129/91 97 06/05/23 18:20 94 16 118/73 97 06/05/23 18:05 93 16 114/60 96 06/05/23 17:50 98 16 123/76 94 L 06/05/23 17:42 97.4 F L 100 16 118/82 95 06/05/23 11:50 98 F 83 17 153/91 96 Intake and Output 06/05/23 06/05/23 06/06/23 14:59 22:59 06:59 Intake Total 400 1600 Output Total 100 Balance 400 1500 Intake: IV 400 1600 Output: Estimated Blood Loss 100 Other: Voiding Method Toilet Weight 90.4 kg 90.4 kg Assessment and Plan Assessment: hypertension controlle d resume amlodipine hyperlipidemia resume atorvastatin check CBC , BMP check lipid panel per patient request full code patient stable from medical stand point thank you for this consultation
[2023-06-06 07:23] VITALS: BP 143/81; PULSE 73; RESP 15; TEMP 99
--- NOTE | 2023-06-06 08:43 | CT ---
EXAMINATION TYPE: CT lumbar spine wo con DATE OF EXAM: 06/05/2023 COMPARISON: 01/17/2023 HISTORY: s/p L4-S1 PLIF CT DLP: 1252.[address] of the lumbar spine was performed. Bone and soft tissue window settings are submitted as well as coronal and sagittal reconstructions. L1-L2: Normal disc space height. No disc herniation protrusion or central stenosis. No facet joint arthropathy. No evidence for foraminal encroachment. L2-L3: Normal disc space height. No disc herniation protrusion or central stenosis. No facet joint arthropathy. No evidence for foraminal encroachment. L3-L4: Normal disc space height. No disc herniation protrusion or central stenosis. No facet joint arthropathy. No evidence for foraminal encroachment. L4-L5: There is been discectomy with intervertebral body spacer in place. Alignment is anatomic. Pedi cular screws are in place. Right hemilaminectomy noted. Soft tissue air seen. No abnormal collections seen about the spinal canal. L5-S1: Severe degenerative disc space narrowing with lateral and dorsal spurring. Hard disc is noted posteriorly with effacement of the ventral thecal sac. No evidence of central stenosis or lateral re cess stenosis pedicular screws are in place at L5-S1. Alignment is near-anatomic. No paraspinal masses are identified. Lumbar segments are free if fracture. IMPRESSION: 1. Postoperative changes as noted.
[2023-06-06] MEDS: GABAPENTIN 300 MG CAP PO SCH (08:45)
[2023-06-06] MEDS ORDERED: amLODIPine 5 MG TAB PO SCH (09:00)
[2023-06-06] MEDS ORDERED: ATORVASTATIN 40 MG TAB PO SCH (09:00)
[2023-06-06] MEDS ORDERED: DULoxetine HCL 60 MG CAPSULE.DR PO SCH (09:00)
[2023-06-06 09:35] LABS: Basophils # (A) 0.02 X 10*3/uL (0.00-0.10); Basophils % (A) 0.1 %; Eosinophils # (A) 0 X 10*3/uL (0.04-0.35); Eosinophils % (A) 0 %; HCT 40.8 % (39.6-50.0); HGB 13.7 d/dL (13.0-17.0); Lymphocytes # (A) 1.03 X 10*3/uL (0.90-5.00); Lymphocytes % (A) 7.1 %; MCH 31.1 pg (27.0-32.0); MCHC 33.6 d/dL (32.0-37.0); MCV 92.7 FL (80.0-97.0); Mean Platelet Volume 9.8 FL (9.5-12.2); Monocytes # (A) 1.14 X 10*3/uL (0.20-1.00); Monocytes % (A) 7.9 %; NRBC Per 100 WBC 0 X 10*3/uL (0.00-0.01); Neutrophils # (A) 12.17 X 10*3/uL (1.80-7.70); Neutrophils % (A) 84.5 %; Platelet Count 246 X 10*3/uL (140-440); RDW 12.4 % (11.5-14.5); WBC 14.42 X 10*3/uL (4.50-10.00)
--- NOTE | 2023-06-06 09:50 | P.DS ---
Providers Date of admission: 06/05/2023 Expected date of discharge: 06/06/23 Attending physician: Beck Antunez DO Consults: 06/05/23 17:40 Consult Physician Routine Consulting Provider: Kavya Jackson Reason/Comments: medical management s/p L4-S1 PLIF Do you want consulting provider notified?: Yes Primary care physician: Miguel Angel Lira MD Hospital Course: Date of admission: 06/05/2023 Date of discharge: 06/06/2023 Admission diagnosis: 1. L4-5 SPONDYLOSIS WITH STENOSIS FORAMINAL 2. L5-S1 SPONDYLOSIS WITH FACET ARTHROSIS 3. LOW BACK PAIN 4. LE RADICULOPATHY Discharge diagnosis: Same Attending physician: Dr. Antunez Surgical procedures: L4-S1 posterolateral interbody fusion Brief history: Patient is a 58-year-old male with a history of L4-L5 spondylolisthesis with stenosis,: L5-S1 spondylosis with facet arthrosis; lower extremity radiculopathy; low back pain. At this point patient has failed conservative treatment measures and has opted to proceed with a elective L4-S1 posteriolateral interbody fusion. Hospital course: Details of patient's surgery can be found in operative report. Patient tolerated the procedure well and was subsequently transported to orthopedic floor. Patient's orthopeidc and medical care was provided daily. Patient had daily laboratory tests performed for evaluation of overall blood counts. Patient had daily physical therapy to include strengthening range of motion as well as education with walker ambulation. Patient was noted to have a relatively uneventful postoperative course. Patient reported satisfactory pain control with oral pain medications by postoperative day 1. Patient showed satisfactory progress with physical therapy. Patient moved steadily through the program and had no difficulty meeting the goals by postoperative day 1. Given patient's otherwise satisfactory course and having met physical therapy goals, plan is to discharge patient home on postoperative day 1. Discharge condition/disposition: Patient will be discharged home in stable condition. Discharge medications: Instructions are given on resumption of patient's normal daily medications per primary care recommendation, in addition patient will be prescribed . Spine Discharge and Recovery Instructions Date of Surgery: 06/05/2023 Diagnosis: 1. L4-5 SPONDYLOSIS WITH STENOSIS FORAMINAL 2. L5-S1 SPONDYLOSIS WITH FACET ARTHROSIS 3. LOW BACK PAIN 4. LE RADICULOPATHY Procedure(s) Performed: 1. L4-5 POSTERIOLATERAL AND INTERBODY FUSION 2. L5-S1 POSTERIOLATERAL STABILIZED FUSION Medications: See medication list All medication refills should be obtained through your primary care doctor or your clinic spine surgeon. Please discuss prescription refills at your follow up appointment. Do not call the hospital for medication refills. Dressing: Leave your dressing in place for a total of 5 days post operatively. Then you may remove your dressing and leave open to air. Keep the area clean and if not able to keep area clean, then cover with sterile gauze and tape. Showering: You may shower 3 days after your procedure allowing soap and water to run over incision. Do not scrub. Do not soak. Blot dry. Follow up: Please confirm a follow up appointment with your surgeon 3 weeks post operatively. Please make an appointment to follow up with your PCP in 1-2 weeks after surgery for evaluation 3 phase, 3-week plan POST OP WEEKS 1-3 1. Lifting/carrying/pushing/pulling limited to less than 5 pounds. 2. Do not sit for longer than 15 minutes at one time. Get up and walk around. Prolonged sitting is NOT advised. If you lay down, see if you can tolerate laying down on you front (belly side) 3. Walk for periods of 15 minutes = 1 mile but no longer; do it multiple times times each day. 4. Ice your low back after activity. POST OP WEEKS 3-6 1. Lifting limited to less than 20 pounds. 2. Do not sit for longer than 30 minutes at a time. Frequently change positions. Use a sit-to stand workstation or take frequent breaks from sitting if you have returned to work. 3. Walk for 30 minutes each day. If possible, do these three or more times a day POST OP WEEKS 6+ At your 6-week appointment we will give you a physical therapy referral to focus on a core stabilization and strengthening program. You should also work on leg & buttock strengthening, hamstring & quadriceps stretching, and continue a low impact aerobic activity program such as swimming, walking, or riding a stationary bicycle. During the initial 6 weeks after your surgery, you are at the highest risk of re-injuring your spine. You should generally avoid BLTs (bending, lifting and twisting combination motions) and follow the above guidelines to reduce the chance of reinjury. You can anticipate post op appointments in our office at approximately 3 weeks and 6 weeks after your surgery. INCISION CARE: If your incision is not draining you do NOT need to cover it with a dressing. Keep your incision clean, dry and intact. In most cases, we apply skin glue, tracie or sutures to the incision at the time of surgery. This will be like a crust or have the appearance of a scab and will fall off in time on its own. The stitches or tracie need to be removed at 3 weeks post op appointment. You may begin to shower 3 days after surgery (this allows the glue to morse well). However, please avoid scrubbing the incision s ite or peeling off any of the skin glue. This will ensure optimal healing of your incision. Also, during this time avoid soaking the incision area in water - this includes swimming pools, hot tubs or baths. No ointments, lotions or oils on the incision until your surgeon allows. Leave tracie, sutures or glue in place. Neurological dysfunction that comes on suddenly can also be a sign of a stroke. Below some common symptoms of a stroke are listed: B - balance difficulty such as sudden onset walking or leaning to one side - NEW E - eye problem such as sudden double vision or trouble seeing on one side - NEW F - Facial weakness or numbness on one side - NEW A - Arm or leg weakness or numbness on one side - NEW S - Slurred speech or difficulty with word finding - NEW T - Time is BRAIN! Call 911 as soon as you recognize these symptoms Diet: Consume a regular diet rich in vegetables and lean protein such as chicken or fish. You should consume in a ratio of approximately 20% fats|40% carbohydrates|40%protein. Vegetables, sweet potatoes, brown rice or quinoa are examples of good carbohydrates. Chips, white bread, cookies and sweets/sugar are examples of bad carbohydrates. Limit your bad carbs, go wild with good carbs. "Life's Simple 7" Guidelines as per [employer] These will help you reclaim your life after surgery and chimney builder helper in your recovery, keeping in mind your restrictions. (1) Get Active. Physical activity can help people lose weight, control high blood pressure and cholesterol, feel emotionally better, and sleep better. (2) Control Cholesterol. Avoid a diet high in saturated fat, trans fat, & cholesterol. Limit whole milk & cream, ice cream, butter, egg yolks, processed meats (like sausage and hot dogs), and fatty meats. Choose healthy foods that are low in saturated fat, trans fat and cholesterol which include: Fruits and vegetables, fiber rich grain products (like whole grain pasta and brown rice), lean meat such as chicken, fish, nuts, seeds, and legumes. (3) Eat Better. Eat small portions. Shop at the grocery with a list and do not stray from it. Tips for a healthy diet include: Limit sodium intake to less than 1500mg daily, avoid prepackaged, processed, and fast foods, choose a diet rich in fruits, vegetables, and whole grain, high fiber foods, and limit saturated & cholesterol in your diet. (4) Manage Blood Pressure. If you have high blood pressure, you should have a cuff at home so that you can check your blood pressure regularly. Be sure you have a good cuff. An arm one is generally better than a wrist one. Bring the cuff to a doctor's appointment to validate that the measurements that your cuff are taking are accurate. Take your blood pressure twice daily when you are sitting down and relaxing. Record the numbers in a log and bring this log with you to your doctors' appointments. (5) Lose Weight if your BMI is above 25. A healthy BMI is between 19-25. To calculate Your BMI, you may use a Standard BMI Calculator on the NIH BMI website: <www.nhlbi.nih.gov/guidelines/obesity/BMI/bmicalc.htm>. Weigh oneself daily. If you are overweight, set a goal to lose weight. A pound a week loss if needed is a good target. (6) Reduce Blood Sugar. Limit foods and liquids with "added sugars." (Added sugars include sucrose, fructose, glucose, maltose, dextrose, high fructose corn syrup, corn syrup, concentrated fruit juice and honey). (7) Stop Smoking. If you smoke, quitting smoking is one of the best things that you can do for your health. Smoking increases your risk of heart attack, stroke, and peripheral vascular disease, which is a build-up of plaque in your arteries. Please discard all the cigarettes and lighters in your house. Have a plan for what you will do when you have the urge to smoke. Direct and second- hand smoke shortens your life as well as the lives of your family, friends and others around you. For your health and the health of those around you, please consider quitting! Proper Bending Body Mechanics: Maintain a wide stance with one foot slightly in front of the other. Keep your back straight. Bend utilizing the strength in your hips and knees. Do not bend at the waist. Maintain the lifted object at your waist-level close to your body. Avoid lifting weight that causes immediately pain or pain anywhere in the body afterwards. Smoking/Nicotine If there was ever one thing that you could do to increase your overall health, decrease your risk of cardiovascular problems by about 39% the second you make the choice, it is to STOP SMOKING. Your body's most instant gratification is the second you stop smoking. We have all heard the studies, read the articles but it is true, smoking is extremely bad for your overall health, and moreover it is detrimental to your bone health. Nicotine, IN ANY FORM, kills bone cells, prevents your body from healing fractures, and significantly prolongs healing after surgery. In spine surgery specifically, it increases your risk of not healing your bones to create a fusion and increases your risk of having a revision surgery due to this up to 60%. I know it is hard. I know it feels impossible. But there are ways. Take control of your life. We are here to help you through it. And when you are ready, ask us and we can direct you to help if you desire. Use the START Plan to Quit Smoking (please visit the Helpguide.org website listed below for more information): S = Set a quit date. Choose a date within the next 2 weeks, so you have enough time to prepare without losing your motivation to quit. If you mainly smoke at work, quit on the weekend, so you have a few days to adjust to the change. T = Tell family, friends, and co-workers that you plan to quit. Let your friends and family in on your plan to quit smoking and tell them you need their support and encouragement to stop. Look for a quit ari who wants to stop smoking as well. You can help each other get through the rough times. A = Anticipate and plan for the challenges you'll face while quitting. Most people who begin smoking again do so within the first 3 months. You can help yourself make it through by preparing ahead for common challenges, such as nicotine withdrawal and cigarette cravings. R = Remove cigarettes and other tobacco products from your home, car, and work. Throw away all your cigarettes (no emergency pack!), lighters, ashtrays, and matches. Wash your clothes and freshen up anything that smells like smoke. Shampoo your car, clean your drapes and carpet, and steam your furniture. T = Talk to your doctor about getting help to quit. Your doctor can prescribe medication to help with withdrawal and suggest other alternatives. If you can't see a doctor, you can get many products over the counter at your local pharmacy or grocery store, including the nicotine patch, nicotine lozenges, and nicotine gum. Resources for Quitting Smoking: <https://www.[place].gov/documents/[facility]/Quit_Tobacco_Resources_for_p atients_313480_7.pdf> Supplementation: Take recommended dosages of Vitamin D and Calcium to help fortify your bones and help them to heal. See your health maintenance packet for dosages and recommended levels. DVT/VTE prophylaxis: You will be given compression stockings from the hospital. Wear these daily for the first two weeks after surgery. You may take them off at night. You may be prescribed a medication to help thin your blood. Take this as directed. If you are not prescribed this medication, early and frequent ambulation has been shown to be the best prophylaxis to deep vein thrombosis and sequelae related to this event. Assessment: 1. L4-5 SPONDYLOSIS WITH STENOSIS FORAMINAL 2. L5-S1 SPONDYLOSIS WITH FACET ARTHROSIS 3. LOW BACK PAIN 4. LE RADICULOPATHY Procedures: 1. L4-5 POSTERIOLATERAL AND INTERBODY FUSION 2. L5-S1 POSTERIOLATERAL STABILIZED FUSION Patient Condition at Discharge: Good Plan - Discharge Summary Discharge Rx Participant: No New Discharge Prescriptions: New Gabapentin 300 mg PO TID #30 cap HYDROcodone/APAP 5-325MG [Saucier 5-325] 1 - 2 tab PO Q6HR PRN #36 tab PRN Reason: Pain cefaDROXiL [Duricef] 500 mg PO Q12HR 5 Days #10 cap Cyclobenzaprine [Flexeril] 5 mg PO TID #21 tablet Sennosides/Docusate Sodium [Senna Plus 8.6-50 mg Softgel] 1 each PO DAILY #20 capsule No Action Atorvastatin [Lipitor] 40 mg PO DAILY amLODIPine [Norvasc] 5 mg PO DAILY DULoxetine HCL [Cymbalta] 60 mg PO DAILY Discharge Medication List Atorvastatin [Lipitor] 40 mg PO DAILY 01/11/23 [History] DULoxetine HCL [Cymbalta] 60 mg PO DAILY 01/11/23 [History] amLODIPine [Norvasc] 5 mg PO DAILY 01/11/23 [History] Cyclobenzaprine [Flexeril] 5 mg PO TID #21 tablet 06/06/23 [Rx] Gabapentin 300 mg PO TID #30 cap 06/06/23 [Rx] HYDROcodone/APAP 5-325MG [Saucier 5-325] 1 - 2 tab PO Q6HR PRN #36 tab 06/06/23 [Rx] Sennosides/Docusate Sodium [Senna Plus 8.6-50 mg Softgel] 1 each PO DAILY #20 capsule 06/06/23 [Rx] cefaDROXiL [Duricef] 500 mg PO Q12HR 5 Days #10 cap 06/06/23 [Rx] Follow up Appointment(s)/Referral(s): Beck Antunez DO [Doctor of Osteopathic Medicine] - 06/20/23 3:45 pm Activity/Diet/Wound Care/Special Instructions: Spine Discharge and Recovery Instructions Date of Surgery: 06/05/2023 Diagnosis: 1. L4-5 SPONDYLOSIS WITH STENOSIS FORAMINAL 2. L5-S1 SPONDYLOSIS WITH FACET ARTHROSIS 3. LOW BACK PAIN 4. LE RADICULOPATHY Procedure(s) Performed: 1. L4-5 POSTERIOLATERAL AND INTERBODY FUSION 2. L5-S1 POSTERIOLATERAL STABILIZED FUSION Medications: See medication list All medication refills should be obtained through your primary care doctor or your clinic spine surgeon. Please discuss prescription refills at your follow up appointment. Do not call the hospital for medication refills. Dressing: Leave your dressing in place for a total of 5 days post operatively. Then you may remove your dressing and leave open to air. Keep the area clean and if not able to keep area clean, then cover with sterile gauze and tape. Showering: You may shower 3 days after your procedure allowing soap and water to run over incision. Do not scrub. Do not soak. Blot dry. Follow up: Please confirm a follow up appointment with your surgeon 3 weeks post operatively. Please make an appointment to follow up with your PCP in 1-2 weeks after surgery for evaluation 3 phase, 3-week plan POST OP WEEKS 1-3 1. Lifting/carrying/pushing/pulling limited to less than 5 pounds. 2. Do not sit for longer than 15 minutes at one time. Get up and walk around. Prolonged sitting is NOT advised. If you lay down, see if you can tolerate laying down on you front (belly side) 3. Walk for periods of 15 minutes = 1 mile but no longer; do it multiple times times each day. 4. Ice your low back after activity. POST OP WEEKS 3-6 1. Lifting limited to less than 20 pounds. 2. Do not sit for longer than 30 minutes at a time. Frequently change positions. Use a sit-to stand workstation or take frequent breaks from sitting if you have returned to work. 3. Walk for 30 minutes each day. If possible, do these three or more times a day POST OP WEEKS 6+ At your 6-week appointment we will give you a physical therapy referral to focus on a core stabilization and strengthening program. You should also work on leg & buttock strengthening, hamstring & quadriceps stretching, and continue a low impact aerobic activity program such as swimming, walking, or riding a stationary bicycle. During the initial 6 weeks after your surgery, you are at the highest risk of re-injuring your spine. You should generally avoid BLTs (bending, lifting and twisting combination motions) and follow the above guidelines to reduce the chance of reinjury. You can anticipate post op appointments in our office at approximately 3 weeks and 6 weeks after your surgery. INCISION CARE: If your incision is not draining you do NOT need to cover it with a dressing. Keep your incision clean, dry and intact. In most cases, we apply skin glue, tracie or sutures to the incision at the time of surgery. This will be like a crust or have the appearance of a scab and will fall off in time on its own. The stitches or tracie need to be removed at 3 weeks post op appointment. You may begin to shower 3 days after surgery (this allows the glue to morse well). However, please avoid scrubbing the incision site or peeling off any of the skin glue. This will ensure optimal healing of your incision. Also, during this time avoid soaking the incision area in water - this includes swimming pools, hot tubs or baths. No ointments, lotions or oils on the incision until your surgeon allows. Leave tracie, sutures or glue in place. Neurological dysfunction that comes on suddenly can also be a sign of a stroke. Below some common symptoms of a stroke are listed: B - balance difficulty such as sudden onset walking or leaning to one side - NEW E - eye problem such as sudden double vision or trouble seeing on one side - NEW F - Facial weakness or numbness on one side - NEW A - Arm or leg weakness or numbness on one side - NEW S - Slurred speech or difficulty with word finding - NEW T - Time is BRAIN! Call 911 as soon as you recognize these symptoms Diet: Consume a regular diet rich in vegetables and lean protein such as chicken or fish. You should consume in a ratio of approximately 20% fats|40% carbohydrates|40%protein. Vegetables, sweet potatoes, brown rice or quinoa are examples of good carbohydrates. Chips, white bread, cookies and sweets/sugar are examples of bad carbohydrates. Limit your bad carbs, go wild with good carbs. "Life's Simple 7" Guidelines as per [employer] These will help you reclaim your life after surgery and chimney builder helper in your re covery, keeping in mind your restrictions. (1) Get Active. Physical activity can help people lose weight, control high blood pressure and cholesterol, feel emotionally better, and sleep better. (2) Control Cholesterol. Avoid a diet high in saturated fat, trans fat, & cholesterol. Limit whole milk & cream, ice cream, butter, egg yolks, processed meats (like sausage and hot dogs), and fatty meats. Choose healthy foods that are low in saturated fat, trans fat and cholesterol which include: Fruits and vegetables, fiber rich grain products (like whole grain pasta and brown rice), lean meat such as chicken, fish, nuts, seeds, and legumes. (3) Eat Better. Eat small portions. Shop at the grocery with a list and do not stray from it. Tips for a healthy diet include: Limit sodium intake to less than 1500mg daily, avoid prepackaged, processed, and fast foods, choose a diet rich in fruits, vegetables, and whole grain, high fiber foods, and limit saturated & cholesterol in your diet. (4) Manage Blood Pressure. If you have high blood pressure, you should have a cuff at home so that you can check your blood pressure regularly. Be sure you have a good cuff. An arm one is generally better than a wrist one. Bring the cuff to a doctor's appointment to validate that the measurements that your cuff are taking are accurate. Take your blood pressure twice daily when you are sitting down and relaxing. Record the numbers in a log and bring this log with you to your doctors' appointments. (5) Lose Weight if your BMI is above 25. A healthy BMI is between 19-25. To calculate Your BMI, you may use a Standard BMI Calculator on the NIH BMI website: <www.nhlbi.nih.gov/guidelines/obesity/BMI/bmicalc.htm>. Weigh oneself daily. If you are overweight, set a goal to lose weight. A pound a week loss if needed is a good target. (6) Reduce Blood Sugar. Limit foods and liquids with "added sugars." (Added sugars include sucrose, fructose, glucose, maltose, dextrose, high fructose corn syrup, corn syrup, concentrated fruit juice and honey). (7) Stop Smoking. If you smoke, quitting smoking is one of the best things that you can do for your health. Smoking increases your risk of heart attack, stroke, and peripheral vascular disease, which is a build-up of plaque in your arteries. Please discard all the cigarettes and lighters in your house. Have a plan for what you will do when you have the urge to smoke. Direct and second- hand smoke shortens your life as well as the lives of your family, friends and others around you. For your health and the health of those around you, please consider quitting! Proper Bending Body Mechanics: Maintain a wide stance with one foot slightly in front of the other. Keep your back straight. Bend utilizing the strength in your hips and knees. Do not bend at the waist. Maintain the lifted object at your waist-level close to your body. Avoid lifting weight that causes immediately pain or pain anywhere in the body afterwards. Smoking/Nicotine If there was ever one thing that you could do to increase your overall health, decrease your risk of cardiovascular problems by about 39% the second you make the choice, it is to STOP SMOKING. Your body's most instant gratification is the second you stop smoking. We have all heard the studies, read the articles but it is true, smoking is extremely bad for your overall health, and moreover it is detrimental to your bone health. Nicotine, IN ANY FORM, kills bone cells, prevents your body from healing fractures, and significantly prolongs healing after surgery. In spine surgery specifically, it increases your risk of not healing your bones to create a fusion and increases your risk of having a revision surgery due to this up to 60%. I know it is hard. I know it feels impossible. But there are ways. Take control of your life. We are here to help you through it. And when you are ready, ask us and we can direct you to help if you desire. Use the START Plan to Quit Smoking (please visit the [employer]note.org website listed below for more information): S = Set a quit date. Choose a date within the next 2 weeks, so you have enough time to prepare without losing your motivation to quit. If you mainly smoke at work, quit on the weekend, so you have a few days to adjust to the change. T = Tell family, friends, and co-workers that you plan to quit. Let your friends and family in on your plan to quit smoking and tell them you need their support and encouragement to stop. Look for a quit ari who wants to stop smoking as well. You can help each other get through the rough times. A = Anticipate and plan for the challenges you'll face while quitting. Most people who begin smoking again do so within the first 3 months. You can help yourself make it through by preparing ahead for common challenges, such as nicotine withdrawal and cigarette cravings. R = Remove cigarettes and other tobacco products from your home, car, and work. Throw away all your cigarettes (no emergency pack!), lighters, ashtrays, and matches. Wash your clothes and freshen up anything that smells like smoke. Shampoo your car, clean your drapes and carpet, and steam your furniture. T = Talk to your doctor about getting help to quit. Your doctor can prescribe medication to help with withdrawal and suggest other alternatives. If you can't see a doctor, you can get many products over the counter at your local pharmacy or grocery store, including the nicotine patch, nicotine lozenges, and nicotine gum. Resources for Quitting Smoking: <https://www.[place].gov/documents/[facility]/Quit_Tobacco_Resources_for_patients_313 480_7.pdf> Supplementation: Take recommended dosages of Vitamin D and Calcium to help fortify your bones and help them to heal. See your health maintenance packet for dosages and recommended levels. DVT/VTE prophylaxis: You will be given compression stockings from the hospital. Wear these daily for the first two weeks after surgery. You may take them off at night. You may be prescribed a medication to help thin your blood. Take this as directed. If you are not prescribed this medication, early and frequent ambulation has been shown to be the best prophylaxis to deep vein thrombosis and sequelae related to this event. Discharge Disposition: HOME SELF-CARE
--- NOTE | 2023-06-06 10:02 | P.PN ---
Subjective Progress Note Date: 06/06/23 Principal diagnosis: 1. L4-S1 Severe spondylosis 2.L4-5 Stenosis 3. Lower extremity paresthesia 4. Lower extremity radiculopathy Patient seen and examined this morning. Patient assisted to bedside to assess surgical incision. Patient tolerated activity well. Surgical dressing is clean dry and intact. Patient is looking forward to working with physical therapy today. He states he has been able toward to the restroom, urinating without d ifficulty. Patient does state that he needs a walker for home, prescription left in chart for rolling walker. Patient does report that his pain is managed on current regimen. Patient is looking forward to discharge later today. Objective - Vital Signs Vital signs: Vital Signs Temp 99.0 F 06/06/23 07:23 Pulse 73 06/06/23 07:23 Resp 15 06/06/23 07:23 BP 143/81 06/06/23 07:23 Pulse Ox 97 06/06/23 07:23 FiO2 Intake & Output 06/05/23 06/06/23 06/06/23 18:59 06:59 18:59 Intake Total 2000 Output Total 100 Balance 1900 Weight 90.4 kg 90.4 kg Intake: IV 1999 Output: Estimated Blood Loss 100 Other: Voiding Method Toilet # Voids 2 - Exam Physical Examination General: The patient is awake and alert, in no acute distress Skin: Skin is warm and dry with no obvious rashes or lesions. Surgical incisions to the paralumbar region, dressing is clean dry and intact Eye: Pupils are equal, round and reactive to light, extra-ocular movements are intact; there is normal conjunctiva bilaterally. Neck: The neck is supple, there is no tenderness and ROM intact. Cardiovascular: There is a regular rate and rhythm. No murmur, rub or gallop is appreciated. Respiratory: Lungs are clear to auscultation, respirations are non-labored, breath sounds are equal. Gastrointestinal: Soft, non-distended, non-tender abdomen. Back: There is no tenderness to palpation in the midline, paralumbar, parathoracic or buttocks region. There is no obvious deformity . Musculoskeletal: ROM limited secondary to pain and stiffness from surgical procedure. Muscle strength in all major muscle groups of bilateral upper extremities 5/5, bilateral lower extremities 4/5. Neurological: CN 2-12 intact. There are no obvious motor or sensory deficits. Movement and coordination equal and intact. Sensory exam to light touch intact C5-T1 and intact from L2-S1. Reflexes 2/4 in bilateral upper and lower extremities. Negative Hoffmans, babinski, and clonus signs. Psychiatric: Cooperative, appropriate mood & affect, normal judgment. - Labs CBC & Chem 7: 06/06/23 05:55 Assessment and Plan Assessment: Postop day 1: L4-S1 posterior lumbar interbody fusion 1. L4-S1 Severe spondylosis 2.L4-5 Stenosis 3. Lower extremity paresthesia 4. Lower extremity radiculopathy Plan: -Appreciate sfdc consultant and team management. -Activity: Ambulate QID, OOB all meals, up and about, limit lifting bending twisting to less than 5 lbs. Use walker or cane if needed for stability. -Daily PT/OT, increase ambulation strength and balance. -Prescription for rolling walker left in chart -Pain control: Adequate at this time -Meds: reviewed -GI ppx: senna, Miralax -DVT PPX: OK to restart Heparin tonight -Hygiene: Shower today. Maintain dressing clean and dry. Meticulous cleaning after BMs away from the incision site -Encourage IS 10x/hr -Dispo: Anticipate discharge home today *I reviewed and discussed this case with my attending Dr. Antunez, whom has reviewed this chart and films and is in agreement with assessment and plan of care as outlined above. I have personally seen and examined the patient, performed the documentation and the assessment and plan as written. Number of minutes spent on the visit: 20m.
--- NOTE | 2023-06-06 10:29 | P.PN ---
Subjective Progress Note Date: 06/06/23 Hospital course: Patient is a very pleasant 58-year-old male with a past medical history of hypertension. He is currently admitted under orthospine surgery team status post L4 through L5 posterior lateral and interbody fusion, L5 through S1 posterior lateral stabilized fusion, and L4 through S1 instrumentation with laminoforminotomy and decompression of neural elements and cage placement L4 through L5 and insertion of bilateral mechanical device. We have been consulted for medical management throughout hospitalization. Physical exam: Patient seen and fully evaluated at bedside this morning. He is postoperative day 1. Patient reports doing well. He states he is doing well. Patient reports intermittent discomfort rated 4-5 out of 10 with movement but states pain medication controls. He denied having any postoperative nausea or vomiting and denies any urinary retention, involuntary loss of bowel or bladder, or experiencing any numbness/tingling/weakness in his extremities. Patient ambulating with use of walker. He is currently sitting in the chair visiting with family at bedside. Vital signs reviewed and stable. General: Nontoxic, no distress and appears stated age. Derm: Skin warm and dry, normal coloration for ethnicity. Head: Atraumatic, normocephalic and symmetric. Eyes: EOMs intact, no lid lag, and anicteric sclera Mouth: no lip lesions, mucus membranes moist Cardiovascular: regular rate and rhythm with normal S1S2, no murmur, positive posterior tibial pulses bilaterally, and cap refill < 2 seconds. Lungs: Respirations even, regular, and unlabored on room air. Lungs CTA bilaterally, no rhonchi, no rales, no wheezing, and no accessory muscle usage. Abdominal: soft, nontender to palpation, no guarding, no appreciable organomegaly Ext: No gross muscle atrophy, no edema, no contractures, movement and sensation intact and equal in all 4 extremities. Neuro: Speech clear, face symmetrical and CN II-XII grossly intact with no noted focal neuro deficits Psych: Alert and oriented to person, place, time, and situation. Appropriate and pleasant affect. Assessment and Plan of Care: Postoperative leukocytosis Status post extensive lumbar surgery -Status post L4 through L5 posterior lateral and interbody fusion, L5 through S1 posterior lateral stabilized fusion, and L4 through S1 instrumentation with laminoforminotomy and decompression of neural elements and cage placement L4 through L5 and insertion of bilateral mechanical device -Morning labs completed and reviewed. CBC unremarkable showing mild leukocytosis with WBC count of 14.42 and stable postoperative hemoglobin of 13.7. BMP also unremarkable. -Mild leukocytosis of 14.4 to believed to be reactive, no signs of infection. -Postoperative hemoglobin stable at 13.7. -Vital signs reviewed and stable. Blood pressure 143/81, heart rate 73, respiratory rate 15, temp 99.0F, SpO2 of 97% on room air. -Orthospine surgery team to manage DVT prophylaxis, wound/dressing care, activity guidelines/restrictions, pain management, and PT/OT. Hypertension Vital signs reviewed and stable. Patient to continue daily medication regimen with amlodipine 5 mg daily. Hyperlipidemia Patient to continue with atorvastatin 40 mg daily. Medically, patient is stable for discharge with no further recommendations at this time once cleared by primary admitting orthopedic surgery team. Thank you for allowing us to participate in the care of this pleasant patient. Do not hesitate to contact us with questions. Someone can be reached from the [facility] all hours of the day at [phone] or via [employer]. Patient was seen independently by Nurse Pracitioner. This document was prepared using [employer] dictation software. Please allow for errors in highway engineering technician, while rare they do occur. [place] Ca NP rendered care for this patient independently, reviewed the findings and plan as documented in the note above. I did not physically speak with or examine the patient on this date. Objective - Vital Signs Vital signs: Vital Signs Temp 99.0 F 06/06/23 07:23 Pulse 73 06/06/23 07:23 Resp 15 06/06/23 07:23 BP 143/81 06/06/23 07:23 Pulse Ox 97 06/06/23 07:23 FiO2 Intake & Output 06/05/23 06/06/23 06/06/23 18:59 06:59 18:59 Intake Total 2000 Output Total 100 Balance 1900 Weight 90.4 kg 90.4 kg Intake: IV 1999 Output: Estimated Blood Loss 100 Other: Voiding Method Toilet # Voids 2 - Labs CBC & Chem 7: 06/06/23 05:55 06/06/23 05:55
[2023-06-06 11:00] LABS: BUN/Creat Ratio 15.27 Ratio (12.00-20.00); Blood Urea Nitrogen 16.8 mg/dL (9.0-27.0); Calcium 9.3 mg/dL (8.7-10.3); Chloride 99 mmol/L (96-109); Chol/HDL Ratio 2.56 Ratio; Glucose 123 mg/dL (70-110); LDL Cholesterol,Calculated 80.1 mg/dL (0.0-131.0); Potassium 4.4 mmol/L (3.5-5.5); Sodium 137 mmol/L (135-145)
== END 2023-06-06 14:05 | disposition home or self-care (01) ==
LOC: OR 11:24 → 4SSUR 18:01 → OR 06-06 14:05
PROVIDERS: ATTEND Orthopaedic Surgery
DX: M47.816 Spondylosis without myelopathy or radiculopathy, lumbar region (principal); M48.061 Spinal stenosis, lumbar region without neurogenic claudication; I10 Essential (primary) hypertension; E78.5 Hyperlipidemia, unspecified; M19.90 Unspecified osteoarthritis, unspecified site; Z98.890 Other specified postprocedural states; Z79.899 Other long term (current) drug therapy
CPT/HCPCS: 22842; 22853; 97161; 86900; 86901; 80061; 80048; 85025; 86850; 72100; 72131; 22633; 22634; C1713; C1734; J2250; J0330; J1100; J0690 ×2; J2405; J3010; J1170 ×2; J2704; J2001; J2371

== ENCOUNTER → 2023-10-01 | Outpatient (CLI) | payer OTHER ==
--- NOTE | 2023-10-01 11:49 | MR ---
EXAMINATION TYPE: MR cervical spine wo con DATE OF EXAM: 10/01/2023 11:35 AM CLINICAL INDICATION:Male, 58 years old with history of M54.2 neck pain; PHH, Prior xrays on synapse, chronic neck pain no trauma, headaches, pain and weakness to BUE, no sx, no CA COMPARISON: 09/12/2023. TECHNIQUE: Multi planar, multi sequence imaging was performed utilizing: T1-weighted, T2-weighted, an d turbo inversion recovery imaging of the cervical spine. IV Contrast: cc (none if empty) FINDINGS: Alignment: The cervical vertebral bodies have preserved heights. Alignment is within normal limits gi deed[facility] patient positioning. Bones: Scattered Modic endplate changes with osteophytes and disc space narrowing. Multilevel degener ative disc disease is noted and most pronounced at the C5-C7 vertebral levels. There is bony reactive edema at the adjoining endplates of C6 and C7. Cord: The spinal cord is unremarkable with regards to their signal intensity and morphology. Discs: Multilevel disc desiccation is present. C2-C3: No significant disc pathology. The spinal canal is patent. Bilateral facet and uncovertebral joint arthropathy are present with mild left neural foraminal stenosis. The right neural foramen is p atent. C3-C4: No significant disc pathology. The spinal canal is patent. No neural foraminal stenosis. C4-C5: A disc osteophyte complex is present with mild spinal canal stenosis. Bilateral facet and unc overtebral joint arthropathy are present with moderate right and mild to moderate left neural foramin al stenosis. C5-C6: No significant disc pathology. The spinal canal is patent. Bilateral facet and uncovertebral joint arthropathy are present with moderate to severe bilateral neural foraminal stenosis. C6-C7: No significant disc pathology. The spinal canal is patent. Bilateral facet and uncovertebral joint arthropathy are present with moderate left and mild to moderate neural foraminal stenosis. C7-T1: No significant disc pathology. The spinal canal is patent. No neural foraminal stenosis. Other: None. IMPRESSION: 1. No evidence for disc herniation or significant spinal canal stenosis. 2. Moderate disc degeneration with associated osteoarthritic changes with multilevel neural foraminal stenosis.
== END | disposition home or self-care (01) ==
LOC: RADMRIMAIN 10:39
PROVIDERS: ATTEND Orthopaedic Surgery
DX: M99.71 Connective tissue and disc stenosis of intervertebral foramina of cervical region (principal); M50.30 Other cervical disc degeneration, unspecified cervical region; M47.812 Spondylosis without myelopathy or radiculopathy, cervical region
CPT/HCPCS: 72141

== ENCOUNTER → 2024-03-13 | Outpatient (CLI) | payer OTHER ==
[2024-03-13 14:16] LABS: Basophils # (A) 0.05 X 10*3/uL (0.00-0.10); Basophils % (A) 0.8 %; Eosinophils # (A) 0.11 X 10*3/uL (0.04-0.35); Eosinophils % (A) 1.7 %; HCT 46.8 % (39.6-50.0); HGB 15.6 g/dL (13.0-17.0); Lymphocytes # (A) 1.43 X 10*3/uL (0.90-5.00); Lymphocytes % (A) 22.7 %; MCH 30.9 pg (27.0-32.0); MCHC 33.3 g/dL (32.0-37.0); MCV 92.7 FL (80.0-97.0); Mean Platelet Volume 9.8 FL (9.5-12.2); Monocytes # (A) 0.52 X 10*3/uL (0.20-1.00); Monocytes % (A) 8.3 %; NRBC Per 100 WBC 0 X 10*3/uL (0.00-0.01); Neutrophils # (A) 4.18 X 10*3/uL (1.80-7.70); Neutrophils % (A) 66.3 %; Platelet Count 269 X 10*3/uL (140-440); RBC 5.05 X 10*6/uL (4.40-5.60); RDW 12.5 % (11.5-14.5)
[2024-03-13 14:58] LABS: ALT 19 U/L (10-49); AST 26 U/L (14-35); Albumin 4.6 g/dL (3.8-4.9); Albumin/Globulin Ratio 2.19 Ratio (1.60-3.17); Alkaline Phosphatase 96 U/L (41-126); Blood Urea Nitrogen 15.7 mg/dL (9.0-27.0); Calcium 9.6 mg/dL (8.7-10.3); Carbon Dioxide 21.2 mmol/L (21.6-31.8); Chloride 107 mmol/L (96-109); Chol/HDL Ratio 3.54 Ratio; Globulin 2.1 g/dL (1.6-3.3); Glucose 100 mg/dL (70-110); LDL Cholesterol,Calculated 114.9 mg/dL (0.0-131.0); PSA Annual Screen 0.837 ng/mL (0.000-4.000); Potassium 4.7 mmol/L (3.5-5.5); Sodium 142 mmol/L (135-145); Total Bilirubin 0.3 mg/dL (0.3-1.2); Total Protein 6.7 g/dL (6.2-8.2)
== END | disposition home or self-care (01) ==
LOC: LABWHC1 07:19
PROVIDERS: ATTEND Internal Medicine
DX: Z12.5 Encounter for screening for malignant neoplasm of prostate (principal); I10 Essential (primary) hypertension
CPT/HCPCS: 80061; 80053; 84443; 85025; 36415; G0103

== ENCOUNTER → 2025-02-13 | Outpatient (CLI) | payer MEDICARE ==
[2025-02-13 15:32] LABS: ALT 23 U/L (10-49); AST 24 U/L (14-35); Albumin 4.5 g/dL (3.8-4.9); Albumin/Globulin Ratio 1.96 Ratio (1.60-3.17); Alkaline Phosphatase 84 U/L (41-126); BUN/Creat Ratio 10.92 Ratio (12.00-20.00); Blood Urea Nitrogen 13.1 mg/dL (9.0-27.0); Calcium 9.6 mg/dL (8.7-10.3); Carbon Dioxide 23.7 mmol/L (21.6-31.8); Chloride 106 mmol/L (96-109); Chol/HDL Ratio 3.69 Ratio; Globulin 2.3 g/dL (1.6-3.3); Glucose 99 mg/dL (70-110); LDL Cholesterol,Calculated 105.8 mg/dL (0.0-131.0); Potassium 4.9 mmol/L (3.5-5.5); Prostate Specific Antigen 0.89 ng/mL (0.000-4.500); Sodium 142 mmol/L (135-145); Total Bilirubin 0.3 mg/dL (0.3-1.2); Total Protein 6.8 g/dL (6.2-8.2)
[2025-02-13 18:33] LABS: Basophils # (A) 0.05 X 10*3/uL (0.00-0.10); Basophils % (A) 0.7 %; Eosinophils # (A) 0.07 X 10*3/uL (0.04-0.35); HCT 46.9 % (39.6-50.0); HGB 15.4 g/dL (13.0-17.0); Lymphocytes # (A) 2.09 X 10*3/uL (0.90-5.00); Lymphocytes % (A) 28.5 %; MCH 30.4 pg (27.0-32.0); MCHC 32.8 g/dL (32.0-37.0); MCV 92.7 FL (80.0-97.0); Mean Platelet Volume 9.9 FL (9.5-12.2); Monocytes # (A) 0.53 X 10*3/uL (0.20-1.00); Monocytes % (A) 7.2 %; NRBC Per 100 WBC 0 X 10*3/uL (0.00-0.01); Neutrophils # (A) 4.57 X 10*3/uL (1.80-7.70); Neutrophils % (A) 62.3 %; Platelet Count 291 X 10*3/uL (140-440); RBC 5.06 X 10*6/uL (4.40-5.60); RDW 13.1 % (11.5-14.5); WBC 7.33 X 10*3/uL (4.50-10.00)
== END | disposition home or self-care (01) ==
LOC: LABWHC1 11:50
PROVIDERS: ATTEND Internal Medicine
DX: Z12.5 Encounter for screening for malignant neoplasm of prostate (principal); I10 Essential (primary) hypertension; E78.5 Hyperlipidemia, unspecified; R73.9 Hyperglycemia, unspecified
CPT/HCPCS: 36415; 80053; 80061; 83036; 83735; 84153; 84443; 85025